=== PATIENT | male | born 1960 | race Caucasian/White ===

== ENCOUNTER 2017-04-10 13:05 | Observation (INO) ==
[2017-04-10] MEDS ORDERED: Aspirin 81 MG TAB.CHEW PO ONE (13:17)
[2017-04-10] MEDS ORDERED: Nitroglycerin 0.4 MG TAB.SUBL SL ONE (13:17)
--- NOTE | 2017-04-10 13:18 | Emergency Department Note ---
Disposition Clinical Impression: Chest pain Qualifiers: Chest pain type: unspecified Qualified Code(s): R07.9 - Chest pain, unspecified Disposition: Admitted As Inpatient Condition: Fair Referrals: Servando Perez CNP [Primary Care Provider] - Forms: ED Satisfaction Letter Time of Disposition: 15:46 General Adult HPI - General Chief complaint: ED Chest Pain Stated complaint: chest pain, ekg changes, sent from PCP Time Seen by Provider: 04/10/17 13:16 Source: patient Mode of arrival: private vehicle Limitations: no limitations Nursing Notes Reviewed: Yes Vital Signs Reviewed: Yes - History of Present Illness HPI Narrative: Patient is a 56-year-old male with a past medical history of MIs in the past sent and by his primary care physician for EKG changes and the patient is also complaining of chest pain that started about 5 hours prior to arrival to the emergency department. Patient describes his chest pain is left-sided is a stabbing pain that radiates into his left arm. He does not have any associated nausea, vomiting, diaphoresis and does not appear to be exertional. Patient states nothing makes his chest pain better and nothing makes it worse. Denies any history of blood clots in the past. - Related Data Home Medications Medication Instructions Recorded Confirmed HYDROcodone/Acet 5/325 mg [[place] 1 tab PO Q6H PRN 01/13/17 04/10/17 5-325 mg] Omeprazole [PriLOSEC] 20 mg PO DAILY 01/13/17 04/10/17 Baclofen [Lioresal] 10 mg PO TID PRN 04/10/17 04/10/17 Mupirocin [Bactroban Oint] 1 appl TP BID 04/10/17 04/10/17 Allergies Allergy/AdvReac Type Severity Reaction Status Date / Time No Known Allergies Allergy Verified 01/13/17 13:41 All systems ED: reviewed and negative except as stated. Constitutional: Denies: fever, chills ENT ED: Denies: congestion Cardiovascular: Reports: chest pain. Denies: palpitations, dyspnea on exertion , orthopnea, edema, syncope Respiratory: Denies: cough, dyspnea, wheezes Gastrointestinal: Denies: abdominal pain, nausea, vomiting Musculoskeletal: Denies: back pain, neck pain Integumentary: Denies: rash, abrasion Neurological: Denies: headache, weakness Psychiatric: Denies: anxiety, depression Past Medical History - Past Medical History Medical history: Reports: asthma, GERD, hyperlipidemia - Social History Smoking Status: Current every day smoker Physical Exam Patient does not appear to be in acute distress at this time. - General Limitations: no limitations General appearance: alert, in no apparent distress - Head Head exam: atraumatic, normocephalic, normal inspection - Eye Eye exam: Present: normal appearance, PERRL, EOMI - ENT ENT exam: normal exam, normal oropharynx, mucous membranes moist - Neck Neck exam: Present: normal inspection, full ROM, trachea midline. Absent: tenderness - Chest Chest inspection: Present: normal inspection, symmetric chest wall rise. Absent : tenderness - Respiratory Respiratory exam: Present: normal lung sounds bilaterally. Absent: respiratory distress, wheezes - Cardiovascular Cardiovascular exam: Present: regular rate, normal rhythm, normal heart sounds - Abdominal Exam Abdominal exam: Present: soft, Non-Tender, normal bowel sounds - Extremities Exam Extremities exam: Present: normal inspection, full ROM. Absent: tenderness, normal capillary refill - Back Exam Back exam: Present: normal inspection, full ROM. Absent: tenderness, CVA tenderness (R), CVA tenderness (L) - Neurological Exam Neurological exam: Present: alert, oriented X3 - Psychiatric Psychiatric exam: Present: normal affect, normal mood - Skin Skin exam: Present: warm, dry, intact, normal color Course Course Narrative: Patient's chest pain resolved from a 4/10 to a 0/10 after he received nitroglycerin. Patient's lab work came back negative. Chest x-ray was negative. EKG changes are unchanged from his old EKGs. Plan is to admit the patient for ACS rule out. I spoke with Dr. Bateman and he agrees to accept the patient. Vital Signs Temperature 98.4 F 04/10/17 13:13 Pulse Rate 66 04/10/17 13:13 Respiratory Rate 16 04/10/17 13:13 Blood Pressure 147/101 04/10/17 13:13 O2 Sat by Pulse Oximetry 95 04/10/17 13:13 Temperature 98.4 F 04/10/17 13:13 Pulse Rate 63 04/10/17 14:52 Respiratory Rate 14 04/10/17 14:52 Blood Pressure 130/90 04/10/17 14:52 O2 Sat by Pulse Oximetry 96 04/10/17 14:52 Oxygen Delivery Oxygen Delivery Nasal Cannula Medical Decision Making - Medical Records Medical records reviewed: Yes I reviewed the patient's medical records. - Lab Data Lab results reviewed: Yes I reviewed the patient's lab results. Result diagrams: 04/10/17 13:19 04/10/17 13:19 Lab Results 04/10/17 04/10/17 04/10/17 Range/Units 13:19 13:19 13:19 WBC 9.4 (4.3-11.1) K/mcL RBC 5.33 (4.19-5.50) M/mcL Hgb 16.6 (12.9-16.9) g/dL Hct 48.5 (37.5-50.1) % MCV 91.0 (83.0-100.0) fL MCH 31.1 (28.0-33.3) pg MCHC 34.2 (31.6-35.5) g/dL RDW 13.9 (11.5-14.5) % Plt Count 208 (140-400) K/mcL MPV 9.2 L (9.4-12.4) fL Immature Gran % 0.2 (0-4) % Seg Neutrophils % 55.6 % Lymphocytes % 35.1 % Monocytes % 7.3 % Eosinophils % 1.1 % Basophils % 0.7 % Neutrophils # 5.2 (1.6-8.9) K/mcL Lymphocytes # 3.3 (0.6-4.6) K/mcL Monocytes # 0.7 (0.0-1.3) K/mcL Eosinophils # 0.1 (0.0-0.6) K/mcL Basophils # 0.1 (0.0-0.2) K/mcL D-Dimer (0-500) ng/mLFEU Sodium 140 (136-145) mEq/L Potassium 3.9 (3.5-4.5) mEq/L Chloride 107 (98-109) mEq/L Carbon Dioxide 23 (19-29) mEq/L BUN 13 (8-26) mg/dL Creatinine 1.19 (0.72-1.25) mg/dL Est GFR ( Amer) > 60 (> 60) Est GFR (Non-Af Amer) > 60 (> 60) BUN/Creatinine Ratio 11 (6-26) Glucose 117 H (70-99) mg/dL Calculated Osmolality 291 (280-300) Calcium 9.5 (8.6-10.8) mg/dL Troponin I 0.00 (0-0.03) ng/mL 04/10/17 Range/Units 13:19 WBC (4.3-11.1) K/mcL RBC (4.19-5.50) M/mcL Hgb (12.9-16.9) g/dL Hct (37.5-50.1) % MCV (83.0-100.0) fL MCH (28.0-33.3) pg MCHC (31.6-35.5) g/dL RDW (11.5-14.5) % Plt Count (140-400) K/mcL MPV (9.4-12.4) fL Immature Gran % (0-4) % Seg Neutrophils % % Lymphocytes % % Monocytes % % Eosinophils % % Basophils % % Neutrophils # (1.6-8.9) K/mcL Lymphocytes # (0.6-4.6) K/mcL Monocytes # (0.0-1.3) K/mcL Eosinophils # (0.0-0.6) K/mcL Basophils # (0.0-0.2) K/mcL D-Dimer 372 (0-500) ng/mLFEU Sodium (136-145) mEq/L Potassium (3.5-4.5) mEq/L Chloride (98-109) mEq/L Carbon Dioxide (19-29) mEq/L BUN (8-26) mg/dL Creatinine (0.72-1.25) mg/dL Est GFR ( Amer) (> 60) Est GFR (Non-Af Amer) (> 60) BUN/Creatinine Ratio (6-26) Glucose (70-99) mg/dL Calculated Osmolality (280-300) Calcium (8.6-10.8) mg/dL Troponin I (0-0.03) ng/mL - Radiology Data Radiology results reviewed: Yes I reviewed the patient's radiology results. Chest X-Ray 04/10/17 13:17 IMPRESSION: No active cardiopulmonary disease D/ / Arturo Hollingsworth MD / Arturo Hollingsworth MD Interpreting Provider: Arturo Hollingsworth MD - EKG Data EKG #1 EKG attestation: Yes I reviewed and interpreted this EKG. EKG results narrative: I interpret EKG that was done at 13:11. EKG is sinus rhythm at a rate of 67 bpm. Normal axis. [place], QRS, QT, and QTC are within normal limits. Patient has good R-wave progression. Patient does have [place] depression in the inferior leads which this is actually old when compared to EKGs that were done on 06/26/2007 and also appeared unchanged from EKG that was sent over from the primary care physician's office today. Attestation Statement - Attestation Attestation: I examined this patient and my medical decision-making was reviewed with the Resident Physician. I agree with the documented findings, disposition and treatment plan as described except to the extent set forth below. Patient to the ED complaining of chest pain. Left-sided. Chest pain. Pain radiates on his left arm. It has not improved but not fully resolved before his arrival here. History of multiple MIs. On exam he is in no acute distress. Heart regular. Plan. The patient's EKG appears to have elevations, however these are chronic. It is more pronounced with his [place] depression which is also chronic. Troponin negative. Pain improved with nitroglycerin. He is admitted to medicine.
[2017-04-10 13:27] LABS: Basophils # 0.1 K/mcL (0.0-0.2); Basophils % 0.7 %; Eosinophils # 0.1 K/mcL (0.0-0.6); Eosinophils % 1.1 %; Hematocrit 48.5 % (37.5-50.1); Hemoglobin 16.6 g/dL (12.9-16.9); Immature Granulocytes % 0.2 % (0-4); Lymphocytes # 3.3 K/mcL (0.6-4.6); Lymphocytes % 35.1 %; Mean Corpuscular HGB Conc 34.2 g/dL (31.6-35.5); Mean Corpuscular Hemoglobin 31.1 pg (28.0-33.3); Mean Platelet Volume 9.2 fL (9.4-12.4); Monocytes # 0.7 K/mcL (0.0-1.3); Monocytes % 7.3 %; Neutrophils # 5.2 K/mcL (1.6-8.9); Platelet Count 208 K/mcL (140-400); Red Blood Count 5.33 M/mcL (4.19-5.50); Red Cell Distribution Width 13.9 % (11.5-14.5); Segmented Neutrophils % 55.6 %
[2017-04-10 13:39] LABS: BUN/Creatinine Ratio 11 (6-26); Blood Urea Nitrogen 13 mg/dL (8-26); Calcium 9.5 mg/dL (8.6-10.8); Carbon Dioxide 23 mEq/L (19-29); Chloride 107 mEq/L (98-109); Glucose 117 mg/dL (70-99); Osmolality,Calculated 291 (280-300); Potassium 3.9 mEq/L (3.5-4.5); Sodium 140 mEq/L (136-145); eGFR For African Americans > 60 (> 60); eGFR For Non-African Americans > 60 (> 60)
[2017-04-10] MEDS ORDERED: *HR* OxyCODONE Immed Rel 5 MG TABLET PO PRN (16:38)
[2017-04-10] MEDS ORDERED: *HR* Morphine 2 MG/ML SYRINGE IVP PRN (16:38)
[2017-04-10] MEDS ORDERED: Acetaminophen 325 MG TABLET PO PRN (16:38)
[2017-04-10] MEDS ORDERED: Naloxone 0.4 MG/ML INJ IVP PRN (16:38)
[2017-04-10] MEDS ORDERED: Ondansetron 4 MG/2 ML VIAL IVP PRN (16:38)
--- NOTE | 2017-04-10 16:44 | Internal Med History&Physical ---
Date of Encounter: 04/10/17 Time of Encounter: 04:35 Assessment and Plan (1) Chest pain Current visit: Yes Status: Acute Mixed features in patient with significant risk factors CXR done in the ER poor positioning with left costophrenic angle not visualized. Initial troponin negative EKG is non-ischemic and unchanged from EKG on EMR Chest pain is most likely secondary to bronchitis Patient is a smoker and has pre-DM as well as HLD Cycle trop Stress test a.m if stress test is negative Repeat CXR -2 views Continue ASA 81 mg daily Add Lipitor 80mg HS-May de-escalate based on result of lipid profile D-dimer is negative, no risk factors for PE Qualifiers: Chest pain type: unspecified Qualified Code(s): R07.9 - Chest pain, unspecified (2) COPD exacerbation Current visit: Yes Status: Acute Patient states he has known COPD and smokes Diffuse wheezing as well as cough on presentation CXR poor positioning-repeat with 2 views Start on prednisone po 40mg daily Levaquin po Duonebs q4h SHONNA Albuterol q2hr prn Sputum culture O2 supplementation prn, he is saturating 95% on room air at this time Follow reports (3) Pre-diabetes Current visit: Yes Status: Chronic A1C 5.7 in 2016 Repeat A1C with next troponin check (4) HLD (hyperlipidemia) Current visit: Yes Status: Chronic Check fasting lipid profile a.m Lipitor 80mg HS Qualifiers: Hyperlipidemia type: unspecified Qualified Code(s): E78.5 - Hyperlipidemia , unspecified (5) Obesity (BMI 30.0-34.9) Current visit: Yes Status: Chronic Lifestyle modification encouraged (6) Tobacco abuse Current visit: Yes Status: Chronic Smokes 1.5 PPD Declines NRT Tobacco cessation counselling Internal Medicine - H&P: HPI Chief complaint: Chest pain, difficulty breathing Admitted From: Home Plans for Post Hospital Care: Home History of present illness: Mr. Borja is a 56 year old male who presented to the ER with chest pain Patient was in his usual state of health till the early hours of this morning when he was about to get out of bed and developed pleuritic Left sided chest pain which was about 5-6/10, non-radiating and associated with some shortness of breath. He denies association with exercise or meals, but believes it is worse when he breathes. Chest pain is described as sharp and stabbing. Not pressure-like He reports he has been coughing with production of greenish sputum for a month. He denies nausea, vomiting or diaphoresis. NO dizziness. Chest pain lasted till he received NTG in the ER He denies orthopnea, dyspnea on exertion or leg swelling At time of review, he is no longer having chest pain He reports "I have had 4 heart attacks, but denies any cardiac work ups or LHC. When asked what he means he says "I just know. He denies illicit drug use He smoked 1.5 PPD of cigarettes PMH and Chart review reveals hx of Pre-Dm , COPD, HLD and GERD He denies significant family hx of IA Past Med Surg Social Fam HX - Past Medical History Medical history: COPD, GERD, hyperlipidemia Psychiatric history: depression - Social History Smoking Status: Current every day smoker Smokeless Tobacco Status: No Alcohol use: none Drug use: none Internal Medicine - H&P: Meds HYDROcodone/Acet 5/325 mg [[place] 5-325 mg] 1 tab PO Q6H PRN 01/13/17 [History] Omeprazole [PriLOSEC] 20 mg PO DAILY 01/13/17 [History] Baclofen [Lioresal] 10 mg PO TID PRN 04/10/17 [History] Mupirocin [Bactroban Oint] 1 appl TP BID 04/10/17 [History] 3 Allergy/AdvReac Type Severity Reaction Status Date / Time No Known Allergies Allergy Verified 01/13/17 13:41 All Systems PM: A 10-system review of systems was performed and is negative for pertinent findings except as documented above in the HPI. - Constitutional Constitutional: no chills, no fever(s), no night sweats - EENT Eyes: no change in vision, no discharge, no pain, no photophobia Ears: no ear discharge, no ear pain, no tinnitus Nose, mouth and throat: no dysphagia, no nasal discharge, no neck pain, no sore throat - Cardiovascular Cardiovascular ROS IM: as per HPI - Respiratory Respiratory: cough, dyspnea, pain on inspiration - Gastrointestinal Gastrointestinal: no abdominal pain, no diarrhea, no hematemesis, no hematochezia, no melena, no nausea, no vomiting - Musculoskeletal Musculoskeletal ROS IM: no numbness, no tingling - Integumentary Integumentary IM: no rash, no unusual bruising - Neurological Neurological ROS: no confusion, no convulsions, no focal weakness, no numbness, no tingling, no tremor(s) - Hematologic/Lymphatic Hematologic/Lymphatic: no easy bruising - Constitutional Vitals: Temp Pulse Resp BP Pulse Ox 98.4 F 56 11 105/79 96 04/10/17 13:13 04/10/17 16:16 04/10/17 16:16 04/10/17 16:16 04/10/17 16:16 Sitting up in bed, able to complete sentences VSS> RR 18. O2 sat 95% on room air Gen: No acute distress HEENT: Moist oral mucosa, pink conjunctiva, sclera is anicteric Chest: Diffuse wheezing ++ in all lung dodd. Rhonchi in bases. L> R. Left chest wall tenderness. Heart: S1, S2 only. Bradycardic Abdomen: Soft and not tender, no palpably enlarged organs Extremities: No edema Internal Med - H&P Results - Labs CBC & Chem 7: 04/10/17 13:19 04/10/17 13:19
[2017-04-10] MEDS ORDERED: Albuterol 2.5 MG/3 ML NEBULIZER IH PRN (17:18)
[2017-04-10] MEDS: levoFLOXacin 500 MG TABLET PO SCH (18:14)
[2017-04-10] MEDS: predniSONE 20 MG TABLET PO SCH (18:14)
[2017-04-10 19:31] LABS: Hemoglobin A1C 5.6 %
[2017-04-10] MEDS: Ipratropium/Albuterol Neb 3 ML IH SCH ×2 (20:03→23:30)
[2017-04-11 01:06] LABS: Basophils % 0.3 %; Eosinophils % 0.1 %; Hematocrit 44.8 % (37.5-50.1); Hemoglobin 15.6 g/dL (12.9-16.9); Immature Granulocytes % 0.3 % (0-4); Lymphocytes # 1.1 K/mcL (0.6-4.6); Lymphocytes % 12.2 %; Mean Corpuscular HGB Conc 34.8 g/dL (31.6-35.5); Mean Corpuscular Hemoglobin 31.1 pg (28.0-33.3); Mean Corpuscular Volume 89.4 fL (83.0-100.0); Mean Platelet Volume 9.3 fL (9.4-12.4); Monocytes # 0.1 K/mcL (0.0-1.3); Monocytes % 1.2 %; Neutrophils # 7.6 K/mcL (1.6-8.9); Platelet Count 186 K/mcL (140-400); Red Blood Count 5.01 M/mcL (4.19-5.50); Red Cell Distribution Width 14.1 % (11.5-14.5); Segmented Neutrophils % 85.9 %
[2017-04-11 01:22] LABS: Chol/HDL Ratio 6.4 (0-4.9)
[2017-04-11] MEDS: Ipratropium/Albuterol Neb 3 ML IH SCH ×6 (03:18→23:45)
[2017-04-11] MEDS ORDERED: Regadenoson 0.4 MG/5 ML SYRINGE IVP ONE (06:16)
[2017-04-11] MEDS: predniSONE 20 MG TABLET PO SCH (08:57)
[2017-04-11] MEDS: Aspirin Enteric Coated 81 MG Tablet PO SCH (08:57)
[2017-04-11] MEDS: levoFLOXacin 500 MG TABLET PO SCH (08:57)
--- NOTE | 2017-04-11 10:27 | Internal Med Progress Note ---
Date of Encounter: 04/11/17 Time of Encounter: 13:00 - Assessment and plan (1) Chest pain Current Visit: Yes Status: Acute Assessment and plan: Mixed features in patient with significant risk factors Chest pain free since arrival Trop negative X3 D-dimer normal CXR done in the ER negative, EKG non-ischemic, Stress test abnormal,awaiting [facility] at time of review Continue ASA, BB, Lipitor Qualifiers: Chest pain type: unspecified Qualified Code(s): R07.9 - Chest pain, unspecified (2) COPD exacerbation Current Visit: Yes Status: Acute Assessment and plan: Continue prednisone, duonebs, azithromycin (3) Pre-diabetes Current Visit: Yes Status: Ruled-out Assessment and plan: Ruled out Hb A1C 5.6 (4) HLD (hyperlipidemia) Current Visit: Yes Status: Chronic Assessment and plan: Abnormal Lipid panel Continue lipitor, de-escalate depending on [facility] results Qualifiers: Hyperlipidemia type: unspecified Qualified Code(s): E78.5 - Hyperlipidemia , unspecified (5) Obesity (BMI 30.0-34.9) Current Visit: Yes Status: Chronic Assessment and plan: Lifestyle modification (6) Tobacco abuse Current Visit: Yes Status: Chronic Assessment and plan: Encouraged cessation Declined NRT - Subjective Interval history: Seen and evaluated, waiting at bedside, standing, refusing to sit to be examined Denies any more chest pain Stress test was abnormal and I had contacted cardiology for evaluation Patient is awaiting [facility] His SOB has improved He is no longer needing O2 - Constitutional Vitals: Temp Pulse Resp BP Pulse Ox 97.6 F 52 18 107/67 95 04/11/17 08:58 04/11/17 08:58 04/11/17 08:58 04/11/17 08:58 04/11/17 08:58 General appearance: Present: A&O X 3, no acute distress, obese. Absent: pleasant - Head Head exam: Present: atraumatic, normocephalic - Eye Eye exam: Present: PERRL, conjuntiva pink, sclera anicteric Pupils: Present: PERRL - Neck Neck exam general surgery: Present: supple, trachea midline. Absent: lymphadenopathy - Respiratory Respiratory exam: Present: CTAB. Absent: accessory muscle use, rales, rhonchi, wheezes - Cardiovascular Cardiovascular exam: Present: RRR, +S1, +S2. Absent: diastolic murmur, gallop, rubs, systolic murmur - GI/Abdominal GI/Abdominal exam: Present: normal bowel sounds, soft, no peritoneal signs. Absent: distended, tenderness - Extremities Exam Extremities exam: Present: warm, radial pulses palpable and symmetrical. Absent : calf tenderness, cyanotic, pedal edema - Neurological Exam Neurological exam: Present: alert, CN II-XII intact, oriented X3, no focal deficits. Absent: pronater drift, facial droop, speech deficit - Skin Skin exam: Present: dry, intact Internal Medicine: Result - Labs CBC & Chem 7: 04/11/17 00:58 04/10/17 13:19 Labs: Short CBC 04/11/17 Range/Units 00:58 WBC 8.8 (4.3-11.1) K/mcL Hgb 15.6 (12.9-16.9) g/dL Hct 44.8 (37.5-50.1) % Plt Count 186 (140-400) K/mcL Neutrophils # 7.6 (1.6-8.9) K/mcL Cardiac Enzymes 04/10/17 04/11/17 Range/Units 18:21 00:58 Troponin I 0.00 0.00 (0-0.03) ng/mL - ABG Interpretation ABG results: PT/INR, D-dimer D-Dimer 372 ng/mLFEU (0-500) 04/10/17 13:19 - Impressions Impressions Chest X-Ray 04/10/17 16:58 IMPRESSION: No acute process. D/ / Claude De MD / Claude De MD Interpreting Provider: Claude De MD Consult Discharge Plan - Plan Referrals: Tatiana Bautista WEED BURNER [Advanced Practice Nurse] - 04/18/17 12:30 pm
--- NOTE | 2017-04-11 11:43 | Cardiology Consult Note ---
Date of Encounter: 04/11/17 Time of Encounter: 10:45 Assessment and Plan (1) Chest pain Current Visit: Yes Status: Acute Per cardiology: -Reports chest pain. States occurs at rest and with exertion. -Reports has had this pain off and on for months. -ECG with no acute changes. -Denies current chest pain. -Troponins negative x3. -Stress test abnormal. -Recommended LHC, see below. Qualifiers: Chest pain type: unspecified Qualified Code(s): R07.9 - Chest pain, unspecified (2) Abnormal stress test Current Visit: Yes Status: Acute Per cardiology: -Nuclear stress with small sized, mild-moderate intensity stress perfusion defect involving apex probably representing mild ischemia. There is transient ischemic dilatation which can be a sign of underlying CAD. Ratio 1.58. Gated EF 68%. -Discussed at length regarding abnormal stress test with patient. -On asa and statin. -Recommend LHC. Risks versus benefits of LHC explained to patient. Patient declines LHC at this time. Patient educated on risk of arrythmia, DC, or without proceeding with LHC. Patient states understanding and still refuses LHC. -Will check echo. -Low dose beta raimundo added. (3) Tobacco abuse Current Visit: Yes Status: Chronic Per cardiology: -Reports smoking 0.5ppd for about 50 years. -I spent 3 minutes reviewing smoking cessation education with patient. Discussion w patient/family: The assessment and plan as outlined above was discussed with the patient who expressed understanding and agreement. All questions were answered. Thank you for involving us in the care of your patient. Please call with any questions. Discussed and reviewed with . History of Present Illness Consult date: 04/11/17 Requesting physician: Isaiah Silverio Consult reason: abnormal stress Chief complaint: chest pain History of present illness: Mr. Borja is a 56 year old male with a relevant past medical history of hyperlipidemia, and tobacco abuse with smoking 0.5ppd for almost 50 years. Patient reports he has been having intermittent chest pain for the past several months. Patient states pain occurs with exertion and at rest. Patient states pain is mid sternal and feel like a "stabbing" sensation. Patient notes that pain is worse when he is under emotional stress. Patient denies alleviating factors and states pain spontaneously resolves. Patient reports increased shortness of breath over the past couple of months. Patient denies increased fatigue. Patient denies current chest pain. Past Med Surg Social Fam HX - Past Medical History Attestation: Yes The following information was validated with the patient. Source: patient, old records reviewed Medical history: COPD, GERD, hyperlipidemia Psychiatric history: depression - Social History Smoking Status: Current every day smoker Packs per day: 1/2 Smokeless Tobacco Status: No Alcohol use: none Drug use: none - Family History Father Name: Everardo Borja Living Status: Cause of : cancer Hx Family Cancer: Yes Medications and Allergies HYDROcodone/Acet 5/325 mg [[place] 5-325 mg] 1 tab PO Q6H PRN 01/13/17 [History] Omeprazole [PriLOSEC] 20 mg PO DAILY 01/13/17 [History] Baclofen [Lioresal] 10 mg PO TID PRN 04/10/17 [History] Mupirocin [Bactroban Oint] 1 appl TP BID 04/10/17 [History] 3 Allergy/AdvReac Type Severity Reaction Status Date / Time No Known Allergies Allergy Verified 01/13/17 13:41 All Systems Review: A 10-system review of systems was performed and is negative for pertinent findings except as documented above in the HPI. - Cardiovascular Cardiovascular: as per HPI, chest pain at rest, chest pain with exertion, dyspnea at rest, dyspnea on exertion Physical Examination Vital Signs, Last 4 Hours Temp Pulse Resp BP Pulse Ox 04/11/17 08:58 97.6 F 52 18 107/67 95 General: Conversant, No Apparent Distress HEENT: Atraumatic, Normocephaly, Mucus Membranes Moist Neck: No JVD, Normal carotid pulses Cardiac: Reg Rate and Rhythm, Normal S1 and S2, No Murmur Lungs: Normal Breath Sounds, No Wheeze, Rales, Rhonchi Neuro: Alert and responsive, No focal deficits noted Abdomen: Soft, Non-Tender Skin: No rashes noted on visualized skin Musculoskeletal: No Chest Wall Tenderness Extremities: No Clubbing, No Cyanosis, No Edema, Normal Pulses Results 04/11/17 00:58 04/10/17 13:19 Lab Results Impressions Chest X-Ray 04/10/17 13:17 IMPRESSION: No active cardiopulmonary disease D/ / Arturo Hollingsworth MD / Arturo Hollingsworth MD Interpreting Provider: Arturo Hollingsworth MD Chest X-Ray 04/10/17 16:58 IMPRESSION: No acute process. D/ / Claude De MD / Claude De MD Interpreting Provider: Claude De MD Active Medications Acetaminophen (Tylenol) 650 mg PO Q6HR PRN PRN Reason: Mild Pain (1-3) Stop: 10/10/17 16:39 Albuterol Sulfate (Proventil Neb) 2.5 mg IH Q2H PRN; Protocol PRN Reason: Shortness Of Breath/Wheezing Stop: 10/10/17 17:19 Albuterol/Ipratropium (Duoneb) 3 ml IH [id number] [facility] Stop: 10/10/17 20:01 Last Admin: 04/11/17 11:13 Dose: 3 ml Aspirin (Aspirin Ec) 81 mg PO DAILY [facility] Stop: 10/11/17 09:01 Last Admin: 04/11/17 08:57 Dose: 81 mg Atorvastatin Calcium (Lipitor) 80 mg PO HS [facility] Stop: 10/10/17 21:01 Last Admin: 04/10/17 19:35 Dose: 80 mg Levofloxacin (Levaquin) 500 mg PO DAILY SHONNA PRN Reason: Protocol Stop: 10/10/17 17:16 Last Admin: 04/11/17 08:57 Dose: 500 mg Metoprolol Tartrate (Lopressor) 12.5 mg PO BID [facility] Stop: 10/11/17 21:01 Morphine Sulfate (Morphine Sulfate) 2 mg IVP Q4HR PRN PRN Reason: Severe Pain (7-10) Stop: 10/10/17 16:39 Mupirocin (Bactroban Oint) 1 appl TP BID [facility] Stop: 10/10/17 21:01 Last Admin: 04/11/17 08:57 Dose: Not Given Naloxone HCl (Narcan) 0.4 mg IVP Q2MIN PRN PRN Reason: Opioid Reversal Stop: 10/10/17 16:39 Omeprazole (Prilosec) 20 mg PO DAILY SHONNA PRN Reason: Protocol Stop: 10/11/17 09:01 Last Admin: 04/11/17 08:57 Dose: 20 mg Ondansetron HCl (Zofran) 4 mg IVP Q8HR PRN PRN Reason: Nausea And Vomiting Stop: 10/10/17 16:39 Oxycodone HCl (Roxicodone) 5 mg PO Q6HR PRN PRN Reason: Moderate Pain (4-6) Stop: 10/10/17 16:39 Prednisone (Prednisone) 40 mg PO DAILY [facility] Stop: 10/10/17 17:16 Last Admin: 04/11/17 08:57 Dose: 40 mg Laboratory Tests 04/10/17 04/10/17 04/10/17 13:19 13:19 18:21 Hgb Creatinine 1.19 Troponin I 0.00 0.00 Triglycerides Cholesterol LDL Cholesterol, Calc HDL Cholesterol 04/11/17 04/11/17 04/11/17 00:58 00:58 00:58 Hgb 15.6 Creatinine Troponin I 0.00 Triglycerides 180 H Cholesterol 245 H LDL Cholesterol, Calc 171 H HDL Cholesterol 38 L - Imaging and Cardiology Chest Xray: report reviewed Stress Test: report reviewed Echo: pending - EKG Interpretation EKG results cardiology: personally reviewed (ECG with SR, HR 67. ST segment changes noted, however similar to previous ST changes noted in 2007.), other ( Telemetry reviewed with average HR previous 12 hours noted to be 77, sinus rhythm. PVCs and PACs noted.) Consult Discharge Plan - Plan Referrals: Tatiana Bautista, IMMIGRATION ATTORNEY [Advanced Practice Nurse] - 04/18/17 12:30 pm
[2017-04-11] MEDS ORDERED: 0.9 % Sodium Chloride 1,000 ML ONE (13:25)
[2017-04-11] MEDS ORDERED: Heparin 1,000 UNITS/500 mL NS 500 ML ONE (13:25)
[2017-04-11] MEDS ORDERED: *HR* Heparin 10,000 UNIT/10 ML VIAL ONE (13:25)
[2017-04-11] MEDS ORDERED: Nitroglycerin 1,000 MCG/10 ML VIAL IV ONE (13:26)
[2017-04-11] MEDS ORDERED: *HR* Midazolam HCl 2 MG/2 ML VIAL ONE (13:52)
[2017-04-11] MEDS ORDERED: *HR* FentaNYL (PF) 100 MCG/2 ML VIAL ONE (13:53)
--- NOTE | 2017-04-11 14:33 | Invasive Diagnostic Lab Proc ---
Name: Kumar Borja Date of Study: 04/11/2017 Date: 1960 Ht: 66.0in Medical Record#: [id number] Age: 56 Wt: 205.47lb Gender: Male BSA: 2.02 Order #: [id number] BMI: 33.18 Physicians Procedure Physician: Lindsay Fontanez MD Referring MD: Referring MD: Staff Name Position Time In Lia Harrison RT (R) Scrub 01:26 PM Lyle Pichardoian RT (R) Monitor 01:26 PM Karen De Leon RN Gambling Broker 01:26 PM Indications Indication Abnormal Test - Stress Procedures Performed Procedure L HRT ARTERY/VENTRICLE ANGIO Pre-Procedure Checklist Pt not NPO for procedure and MD aware. Blood Pressure: 114/54 Rhythm: Sinus Arrhythmia Plan of Care Patient will tolerate the procedure without complications. Adequate level of comfort will be maintained. Hemodynamics will remain stable Patient will recover from procedure without complications. Respiratory function will be maintained. Cardiac rhythm will remain stable. Patient temperature will be maintained. Patient and/or family have verbalized understanding of the procedure. Patient Education Chief Complaint/Reason for Test: Cardiac Cath Developmental Category: Geriatric (65+ years) Developmentally Appropriate for Age: Yes Learning Barriers: None Education Needs: Procedure Education Method: Verbal Information Taught: Cardiac Cath Educational Evaluation: Able to repeat information Intravenous Access Time IV Size Location DC'd Fluid/Drip Rate Units RN 01:45 PM 18g 1 06/12" Patent On Arrival Rt Antecubital 0.9NaCl 25 ml/hr Karen De Leon RN Allergies No Known Allergies Vital Signs Time BP (mmHg) HR (bpm) O2 Sat. RR (bpm) LOC 01:46 PM 114 / 54 67 94 % 10 5 = Fully awake and oriented or at pre-proc level 01:41 PM / % 4 = Oriented but drowsy 01:57 PM / % 4 = Oriented but drowsy 01:51 PM 155 / 88 72 95 % 27 01:55 PM 146 / 87 112 96 % 22 02:00 PM 136 / 81 78 95 % 12 02:05 PM 139 / 87 107 93 % 20 02:10 PM 141 / 87 109 90 % 19 02:15 PM 134 / 80 97 93 % 16 02:20 PM 125 / 76 87 95 % 13 02:12 PM / % 5 = Fully awake and oriented or at pre-proc level Procedural Medications Time Medication Dose Units Method Given By 01:53 PM Oxygen 2 L/min nasal cannula Karen De Leon RN 01:53 PM Versed 1 mg Intravenous Karen De Leon RN 01:53 PM Fentanyl 50 mcg Intravenous Karen De Leon RN 02:01 PM Versed 0.5 mg Intravenous Karen De Leon RN 02:02 PM Fentanyl 25 mcg Intravenous Karen De Leon RN 02:03 PM Lidocaine 2% 10 ml Subcutaneous Lindsay Fontanez MD 02:10 PM Oxygen 4 L/min nasal cannula Karen De Leon RN ASA Classification: CLASS II- Mild systemic disease (i.e. well-controlled diabetes, hypertension, asthma, cigarette smoking) Lance Score Preprocedure Postprocedure Activity 2- Moves 4 extremities sustained head lift Activity 2- Moves 4 extremities sustained head lift Circulation 2- SBP +/= 20 points of pre-anesthetic level Circulation 2- SBP +/= 20 points of pre-anesthetic level Consciousness 2- Awake and alert oriented x 3 Consciousness 2- Awake and alert oriented x 3 O2 Saturation 2- Able to maintain O2 satruation of 92% on room air O2 Saturation 2- Able to maintain O2 satruation of 92% on room air Respiratory 2- Able to deep breathe and cough well Respiratory 2- Able to deep breathe and cough well Total Score 10 Total Score 10 Contrast Agent: Isovue Diagnostic Contrast: 54 ml Total Contrast: 54 ml Fluoro Dose: 197 mGy Procedure Log Time Note Enter By 01:26 PM Patient charges- Angio tray pack, Navilyst 3mm J, Pulse Oximetry and ACIST tubing and transducer : PM Lia Harrison RT (R) Position: Scrub Time in: 13:: PM Aung Pichardo RT (R) Position: Monitor Time in: :: PM Karen De Leon RN Position: Gambling Broker Time in: ::41 PM Pt arrived to lab rn 1 at 13:41 : PM Time: 13:41 Patient comfortable and pain free: Yes :41 PM Time: 13:41LOC: 5 = Fully awake and oriented or at pre-proc level :41 PM Physician arrived 13:41 01:42 PM Meet and greet completed [email or web address] 01:42 PM Sign in performed according to hospital policy. [email or web address] 01:42 PM Procedure start 13:42 [email or web address] 01:42 PM ASA Class CLASS II- Mild systemic disease (i.e. well-controlled diabetes, hypertension, asthma, cigarette smoking) [email or web address] 01:46 PM CathStat 01:46 PM Case Delayed No [email or web address] 01:47 PM Hair removed from procedure site in procedure lab using clippers. Bilateral groin prepped with Chloraprep by Lia Harrison (R), safety strap applied then patient was draped. Skin intact. [email or web address] 01:50 PM Vitals capture started with the following parameters, Patient=Adult, Interval=5 min, Initial Qfideqcg=741 mmHg, Deflation Rate=5 mmHg, Cuff placed on Right Arm 01:50 PM Recorded ECG: HR=69 Condition=Condition 1 01:51 PM HR=72 bpm, WZEZ=950/88 mmhg, SpO2=95.0 %, Resp=27 B/min 01:52 PM Recorded ECG: HR=75 Condition=Condition 1 01:53 PM Time: 13:53 Oxygen on at 2 L/min per nasal cannula by Karen De Leon RN 2 01:53 PM Time: 13:53 Versed 1 mg Intravenous Given by Karen De Leon RN [email or web address] 01:54 PM Time: 13:53 Fentanyl 50 mcg Intravenous Given by Karen De Leon RN [email or web address] 01:55 PM YB=557 bpm, IWNV=499/87 mmhg, SpO2=96.0 %, Resp=22 B/min 01:56 PM Pressure channel 1 zero failed. 01:56 PM Pressure channel 1 zero failed. 01:56 PM Pressure channel 1 zero failed. 01:57 PM Time: 13:41LOC: 4 = Oriented but drowsy 01:57 PM Time: 13:41 Patient comfortable and pain free: Yes [email or web address] 01:57 PM Pressure channel 1 zero failed. 01:57 PM Pressure channel 1 zeroed. 02:00 PM HR=78 bpm, BOMC=937/81 mmhg, SpO2=95.0 %, Resp=12 B/min 02:01 PM Time: 14:01 Versed 0.5 mg Intravenous Given by Karen De Leon RN [email or web address] 02:02 PM Time: 14:02 Fentanyl 25 mcg Intravenous Given by Karen De Leon RN [email or web address] 02:03 PM Time out performed according to hospital policy 02:04 PM Time: 14:03 10 ml Lidocaine 2% to right groin Subcutaneous Given by Lindsay Fontanez MD 02:04 PM Unsuccessful access attempt # 1 into the right Femoral artery. Manual pressure applied to achieve hemostasis.. 02:05 PM Micro-Introducer Kit utilized for sheath placement 02:05 PM Bolus angiogram of right Femoral complete: ml/sec for a total of 5 mls 02:05 PM LQ=175 bpm, RFUG=491/87 mmhg, SpO2=93.0 %, Resp=20 B/min 02:07 PM everything pulled out. 02:07 PM Access obtained by percutaneous puncture. 5Fr 10cm Terumo Post sheath placed in right Femoral artery. [id number] 02:07 PM 0.035 145cm Navilyst 3mmJ wire [id number] 02:08 PM 5Fr FL 4 catheter inserted over the wire [facility] 02:08 PM Recorded Pressure: Ao, HR=98, Condition=Condition 1 (Aorta) Ao 125/87/104 02:08 PM LCA angiography performed in multiple views. 02:10 PM Catheter removed 02:10 PM 5Fr FR 4 catheter inserted over the wire [facility] 02:10 PM FR=934 bpm, EIUS=457/87 mmhg, SpO2=90.0 %, Resp=19 B/min 02:11 PM Time: 14:10 Oxygen on at 4 L/min per nasal cannula by Karen De Leon RN 02:11 PM RCA angiography performed in multiple views. 02:11 PM Recorded Pressure: Ao, II=725, Condition=Condition 1 (Aorta) Ao 127/76/102 02:12 PM Time: 13:57 Patient comfortable and pain free: 02:12 PM Time: 13:57LOC: 4 = Oriented but drowsy 02:12 PM Coronary Dominance: right 02:12 PM Catheter removed 02:13 PM 5Fr Pigtail catheter inserted over the wire [facility] 02:14 PM Catheter selectively placed in left ventricle bw 02:14 PM Recorded Pressure: LV, CS=143, Condition=Condition 1 (Left Ventricle) LV 130/23/29 02:14 PM Recorded Pressure: LV, Ao, HR=99, Condition=Condition 1 (Left Ventricle) LV 124/9/11, (Aorta) Ao 130/26/74 02:15 PM Catheter removed [email or web address] 02:15 PM Bolus angiogram of right Femoral complete: ml/sec for a total of 5 mls [email or web address] 02:15 PM HR=97 bpm, IAHM=075/80 mmhg, SpO2=93.0 %, Resp=16 B/min 02:17 PM Bolus angiogram of right Femoral complete: ml/sec for a total of 5 mls [email or web address] 02:18 PM Arterial sheath pulled, Angio-seal closure device used and was Successful [id number] S/N. [email or web address] 02:18 PM Isovue 370 - 200ml,1 Bottle(s) used. [email or web address] 02:18 PM Procedure completed at 14:18 [email or web address] 02:18 PM Sign out completed: Radiation Dose 197.10 mGy Fluoro Time: 1.4 Isovue 370 - 200ml contrast 54 ml given by Lindsay Fontanez MD. Complications: NoneCardiac Rehab Consult needed: NoConfirmed administered medications: Yes [email or web address] 02:19 PM Post ECG Sinus Arrhythmia [email or web address] 02:19 PM Post Blood Pressure 134/80 [email or web address] 02:19 PM 14:19 Post Pulses Bilateral DP & PT 1+ [email or web address] 02:20 PM Information taught Cardiac Cath and Angioseal [email or web address] 02:20 PM Education needs Procedure, Plan of Care, and Disease Process [email or web address] 02:20 PM Learning barriers :Sedated [email or web address] 02:20 PM Education Methods Verbal [email or web address] 02:20 PM Education evaluation Needs further instruction [email or web address] 02:20 PM Site status No bleeding/hematoma - Rt Groin as reported by Lia Harrison RT (R) at 14:20 [email or web address] 02:20 PM Opsite applied [email or web address] 02:20 PM Delay to floor No [email or web address] 02:20 PM Family none. [email or web address] 02:20 PM HR=87 bpm, EQWA=351/76 mmhg, SpO2=95.0 %, Resp=13 B/min 02:21 PM Complications: None [email or web address] 02:21 PM Fluoro Time: 1.4 [email or web address] 02:21 PM Isovue 370 - 200ml contrast 54 ml given by Lindsay Fontanez MD. [email or web address] 02:21 PM Radiation Dose 197.10 mGy [email or web address] 02:23 PM Vitals capture stopped. 02:24 PM Report given to aureliano DOMINGUEZ Pt taken to 3B Room #39. 14:23 [email or web address] 02:27 PM Time: 14:12LOC: 5 = Fully awake and oriented or at pre-proc level [email or web address] 02:27 PM Time: 14:12 Patient comfortable and pain free: Yes [email or web address] 02:27 PM Patient out of room: 14:27 [email or web address] Complications Complication None None Hemodynamics Pressures Site Systolic/A Wave Diastolic/V Wave Mean AO 125 87 104 AO 127 76 102 LV 130 23 29 LV 124 9 11 AO 130 26 74 Post Procedure Information Blood Pressure: 134/80 mmHg Rhythm: Sinus Arrhythmia Post procedural instructions were given Closure Device Time Device Success/Fail 04/11/2017 2:18:00 PM Angio-Seal VIP Successful Site Checks Time Location Status Staff Sheath In? Note 02:20 PM Rt Groin No bleeding/hematoma Lia Harrison RT (R) Pulses Time Site Pre-Procedure Post-Procedure Note 04/11/2017 1:45:00 PM Bilateral DP & PT 1+ 2:19:00 PM Bilateral DP & PT 1+ Updated by Aung Pichardo RT (R) on 04/11/2017 2:28:07 PM Aung Pichardo RT electronically signed on 04/11/2017 2:28:40 PM with status of Final
[2017-04-11] MEDS ORDERED: Acetaminophen 325 MG TABLET PO PRN (15:08)
--- NOTE | 2017-04-11 15:22 | Event Note ---
Date of Encounter: 04/11/17 Time of Encounter: 15:21 - Cardiology Event Note LHC with coronary arteries angiographically free of disease. Cardiology will sign off.
[2017-04-11 16:09] LABS: Basophils % 0.1 %; Hematocrit 46.8 % (37.5-50.1); Hemoglobin 15.9 g/dL (12.9-16.9); Immature Granulocytes % 0.4 % (0-4); Mean Corpuscular Hemoglobin 31.4 pg (28.0-33.3); Mean Corpuscular Volume 92.3 fL (83.0-100.0); Mean Platelet Volume 9.2 fL (9.4-12.4); Monocytes # 0.3 K/mcL (0.0-1.3); Monocytes % 1.9 %; Neutrophils # 14.6 K/mcL (1.6-8.9); Platelet Count 193 K/mcL (140-400); Red Blood Count 5.07 M/mcL (4.19-5.50); Red Cell Distribution Width 14.1 % (11.5-14.5); Segmented Neutrophils % 91.6 %
[2017-04-11 16:20] LABS: BUN/Creatinine Ratio 10 (6-26); Blood Urea Nitrogen 12 mg/dL (8-26); Calcium 9.2 mg/dL (8.6-10.8); Carbon Dioxide 22 mEq/L (19-29); Chloride 107 mEq/L (98-109); Glucose 122 mg/dL (70-99); Osmolality,Calculated 287 (280-300); Potassium 4.5 mEq/L (3.5-4.5); Sodium 138 mEq/L (136-145); eGFR For African Americans > 60 (> 60); eGFR For Non-African Americans > 60 (> 60)
[2017-04-12] MEDS: Ipratropium/Albuterol Neb 3 ML IH SCH ×3 (03:47→11:21)
[2017-04-12] MEDS: levoFLOXacin 500 MG TABLET PO SCH (07:55)
[2017-04-12] MEDS: predniSONE 20 MG TABLET PO SCH (07:55)
[2017-04-12] MEDS: Aspirin Enteric Coated 81 MG Tablet PO SCH (07:56)
--- NOTE | 2017-04-12 11:53 | Discharge Summary ---
Date of Encounter: 04/12/17 Time of Encounter: 12:45 - Discharge Diagnosis (1) Chest pain Priority: Primary Status: Resolved Qualifiers: Chest pain type: unspecified Qualified Code(s): R07.9 - Chest pain, unspecified (2) COPD exacerbation Priority: Primary Status: Acute (3) Pre-diabetes Priority: Primary Status: Ruled-out (4) HLD (hyperlipidemia) Priority: Secondary Status: Chronic Qualifiers: Hyperlipidemia type: unspecified Qualified Code(s): E78.5 - Hyperlipidemia , unspecified (5) Obesity (BMI 30.0-34.9) Priority: Secondary Status: Chronic (6) Tobacco abuse Priority: Secondary Status: Chronic - Discharge Medications Prescriptions: Albuterol Sulfate [Albuterol Inhaler] 1 puff IH Q4HR #1 hfa.aer.ad Atorvastatin [Lipitor] 20 mg PO HS #30 tablet levoFLOXacin [Levaquin] 500 mg PO DAILY #3 tablet predniSONE [PredniSONE] 40 mg PO DAILY #6 tablet Home Medications: HYDROcodone/Acet 5/325 mg [[place] 5-325 mg] 1 tab PO Q6H PRN 01/13/17 [History] Omeprazole [PriLOSEC] 20 mg PO DAILY 01/13/17 [History] Baclofen [Lioresal] 10 mg PO TID PRN 04/10/17 [History] Mupirocin [Bactroban Oint] 1 appl TP BID 04/10/17 [History] Albuterol Sulfate [Albuterol Inhaler] 1 puff IH Q4HR #1 hfa.aer.ad 04/12/17 [Rx] Atorvastatin [Lipitor] 20 mg PO HS #30 tablet 04/12/17 [Rx] levoFLOXacin [Levaquin] 500 mg PO DAILY #3 tablet 04/12/17 [Rx] predniSONE [PredniSONE] 40 mg PO DAILY #6 tablet 04/12/17 [Rx] Allergies/Adverse Reactions: 3 Allergy/AdvReac Type Severity Reaction Status Date / Time No Known Allergies Allergy Verified 01/13/17 13:41 Procedures/tests Complete & Pending: Procedures Performed prior 72 hours Category Date Time Status CL Cardiac Catheterization [CL] Routine Die Cutting Machine Operator 04/11/17 12:58 Completed NM alonzo perf SPECT multi [NM] Routine Exams 04/10/17 16:42 Taken ECG 12 lead ECG [ECG] Routine Y 04/11/17 15:08 Ordered EV echocardiogram Routine Y 04/11/17 11:38 Completed SP pharm nuclear stress Routine Y 04/11/17 07:15 Completed Date of admission: 04/10/17 16:07 Primary care physician: Servando Perez CNP Consults: 04/11/17 10:27 Consult to Cardiology [CONS] Stat Comment: Consulting Provider: Cardiology Priscila Reason for Consult: Chest pain, abnormal stress test Call Completed: Yes Discharging clinician: Isaiah Silverio Anticipated date of discharge: 04/12/17 - Patient Status Disposition: Home, Self-Care Condition: Good Functional capacity at discharge: independent ambulation Overall status at discharge: patient is back to baseline - Discharge Instructions Instructions: Influenza Virus Vaccine (Injection), Chest Pain (DC), Left Heart Catheterization (DC) Follow Up With: Tatiana Bautista CNP [Advanced Practice Nurse] - 04/18/17 12:30 pm - Diet and Activity Activity: resume usual activities as tolerated Diet: low fat, low cholesterol Interval History: See below Hospital course: Mr. Borja is a 56 year old male with tobacco abuse admitted for complains of chest pain and COPDE CXR/EKG and troponin were unremarkable However, stress test was abnormal , warranting cardiology evaluation and LHC which did not show any coronary blockage Patient has been chest pain free and asymptomatic He was wheezing on arrival and had symptoms of bronchitis, resolved and improved with duonebs, steroids and levaquin Mild leukocytosis is due to steroids Seen and evaluated this morning at bedside, no new complains, stable to be discharged home on Albuterol MDI, Statin for HLD, Levaquin and prednisone Educated on tobacco cessation , for 3 mins, declined NRT, wishes to self quit Follow up with PCP Time spent discussing smoking cessation with patient: 3 to 10 minutes - Time Spent with Patient Total time spent providing and/or coordinating discharge services: Greater than 30 minutes - Constitutional Vitals: Temp Pulse Resp BP Pulse Ox 98.0 F 63 17 114/68 97 04/12/17 07:35 04/12/17 07:35 04/12/17 11:23 04/12/17 07:35 04/12/17 11:23 General appearance: Present: A&O X 3, no acute distress, obese. Absent: pleasant - Head Head exam: Present: atraumatic, normocephalic - Eye Eye exam: Present: PERRL, conjuntiva pink, sclera anicteric Pupils: Present: PERRL - Neck Neck exam general surgery: Present: supple, trachea midline. Absent: lymphadenopathy - Respiratory Respiratory exam: Present: CTAB. Absent: accessory muscle use, rales, rhonchi, wheezes - Cardiovascular Cardiovascular exam: Present: RRR, +S1, +S2. Absent: diastolic murmur, gallop, rubs, systolic murmur - GI/Abdominal GI/Abdominal exam: Present: normal bowel sounds, soft, no peritoneal signs. Absent: distended, tenderness - Extremities Exam Extremities exam: Present: warm, radial pulses palpable and symmetrical. Absent : calf tenderness, cyanotic, pedal edema - Neurological Exam Neurological exam: Present: alert, CN II-XII intact, oriented X3, no focal deficits. Absent: pronater drift, facial droop, speech deficit - Skin Skin exam: Present: dry, intact
[2017-04-12 12:19] VITALS: BP 131/74
== END 2017-04-12 13:41 | disposition home or self-care (01) ==
LOC: 3BNU 13:05 → EMEROO 13:05 → SUATTDRO 16:07 → 3BNU 17:03
PROVIDERS: ADMIT Internal Medicine; ATTEND Internal Medicine

== ENCOUNTER 2021-07-26 15:51 | Inpatient (IN) ==
[2021-07-26 18:04] LABS: Basophils % 0.1 %; Hematocrit 49.7 % (37.5-50.1); Hemoglobin 16.8 g/dL (12.9-16.9); Immature Granulocytes % 0.6 % (0-4); Immature Platelets 8.2 % (1.1-6.1); Lymphocytes # 0.9 K/mcL (0.6-4.6); Lymphocytes % 5.8 %; Mean Corpuscular HGB Conc 33.8 g/dL (31.6-35.5); Mean Corpuscular Hemoglobin 30.8 pg (28.0-33.3); Mean Platelet Volume 10.8 fL (9.4-12.4); Monocytes # 1.1 K/mcL (0.0-1.3); Monocytes % 7.6 %; Neutrophils # 12.5 K/mcL (1.6-8.9); Platelet Count 113 K/mcL (140-400); Red Blood Count 5.46 M/mcL (4.19-5.50); Red Cell Distribution Width 14.1 % (11.5-14.5); Segmented Neutrophils % 85.9 %; White Blood Count 14.5 K/mcL (4.3-11.1)
[2021-07-26] MEDS: Ipratropium/Albuterol Neb 3 ML IH ONE ×2 (18:06→18:07)
[2021-07-26 18:22] LABS: BUN/Creatinine Ratio 20 (6-26); Blood Urea Nitrogen 38 mg/dL (8-23); Calcium 9.4 mg/dL (8.6-10.3); Carbon Dioxide 22 mEq/L (23-29); Chloride 101 mEq/L (98-107); Glucose 129 mg/dL (70-105); Osmolality,Calculated 293 (280-300); Potassium 4.1 mEq/L (3.5-5.1); Sodium 136 mEq/L (136-145); Troponin I < 0.03 ng/mL (< 0.04); eGFR For African Americans 43 (> 60); eGFR For Non-African Americans 36 (> 60)
[2021-07-26] MEDS ORDERED: 0.9 % Sodium Chloride 500 ML IVC ONE (18:40)
[2021-07-26] MEDS ORDERED: Ondansetron ODT 4 MG TAB.RAPDIS SL PRN (21:48)
[2021-07-26] MEDS ORDERED: Melatonin 3 MG TABLET PO PRN (21:48)
[2021-07-26] MEDS ORDERED: Naloxone 0.4 MG/ML INJ IVP PRN (21:48)
[2021-07-26] MEDS ORDERED: 0.9 % Sodium Chloride 250 ML IV ONE (22:52)
[2021-07-26] MEDS: Ipratropium/Albuterol Neb 3 ML IH SCH (23:13)
[2021-07-26] MEDS: Acetaminophen 325 MG TABLET PO PRN (23:26)
[2021-07-26] MEDS: *HR* LORazepam 2 MG/ML VIAL IVP PRN (23:27)
[2021-07-27 03:14] LABS: Albumin 3.5 g/dL (3.5-5.7); Albumin/Globulin Ratio 1.4 (1.1-2.2); Basophils % 0.1 %; Bilirubin,Total 0.4 mg/dL (0.3-1.0); Calcium 8.1 mg/dL (8.6-10.3); Globulin 2.5 g/dL (2.4-3.5); Hematocrit 43.3 % (37.5-50.1); Immature Granulocytes % 0.7 % (0-4); Lymphocytes # 0.6 K/mcL (0.6-4.6); Lymphocytes % 5.4 %; Mean Corpuscular HGB Conc 33.9 g/dL (31.6-35.5); Mean Corpuscular Hemoglobin 30.9 pg (28.0-33.3); Mean Corpuscular Volume 91.2 fL (83.0-100.0); Mean Platelet Volume 10.7 fL (9.4-12.4); Monocytes # 0.8 K/mcL (0.0-1.3); Monocytes % 7.2 %; Neutrophils # 9.9 K/mcL (1.6-8.9); Platelet Count 114 K/mcL (140-400); Red Blood Count 4.75 M/mcL (4.19-5.50); Red Cell Distribution Width 14.3 % (11.5-14.5); Segmented Neutrophils % 86.6 %; White Blood Count 11.4 K/mcL (4.3-11.1)
[2021-07-27 03:45] LABS: Hemoglobin 14.7 g/dL (12.9-16.9)
[2021-07-27] MEDS: Ipratropium/Albuterol Neb 3 ML IH SCH (04:15)
[2021-07-27] MEDS ORDERED: Ipratropium 1 PUFF INHALER IH ONE (04:24)
[2021-07-27] MEDS ORDERED: Budesonide/Formoterol 160/4.5 1 PUFF INH IH ONE (04:24)
[2021-07-27] MEDS: *HR* Heparin 5,000 UNIT/ML VIAL SQ SCH ×3 (06:36→20:42)
[2021-07-27] MEDS ORDERED: Ringers Solution, Lactated 1,000 ML IVC ONE (08:34)
[2021-07-27] MEDS: dexAMETHasone 4 MG TABLET PO SCH (08:37)
[2021-07-27] MEDS: Azithromycin 250 MG TABLET PO SCH (08:37)
[2021-07-27] MEDS: Ipratropium 1 PUFF INHALER IH SCH ×3 (08:38→20:30)
[2021-07-27] MEDS: Budesonide/Formoterol 160/4.5 1 PUFF INH IH SCH ×2 (08:39→20:30)
[2021-07-27 12:42] LABS: Protein/Creatinine Ratio,Urine 0.44 mg/mg (0.00-0.20)
[2021-07-27 12:50] LABS: Bilirubin,Urine Negative (Negative); Blood,Urine Trace (Negative); Clarity,Urine Clear (Clear); Color,Urine Light-Yellow (Yellow); Glucose,Urine (UA) 50 mg/dL (Normal); Hyaline Casts,Urine Few per lpf (None Seen); Ketones,Urine Negative (Negative); Leukocyte Esterase,Urine Negative (Negative); Mucus,Urine Few per lpf (None-Few); Nitrite,Urine Negative (Negative); Protein,Urine 30 mg/dL (Neg-Trace); RBC,Urine 0-3 per hpf (0-3); Specific Gravity,Urine 1.021 (1.010-1.025); Urobilinogen,Urine Normal (Normal); WBC,Urine 0-3 per hpf (0-3)
[2021-07-28 01:44] LABS: Calcium 8.9 mg/dL (8.6-10.3); Potassium 3.3 mEq/L (3.5-5.1)
[2021-07-28] MEDS: Ipratropium 1 PUFF INHALER IH SCH ×4 (04:02→19:37)
[2021-07-28] MEDS: *HR* Heparin 5,000 UNIT/ML VIAL SQ SCH ×3 (05:58→22:00)
[2021-07-28] MEDS: Budesonide/Formoterol 160/4.5 1 PUFF INH IH SCH ×2 (07:50→19:37)
[2021-07-28] MEDS: dexAMETHasone 4 MG TABLET PO SCH (08:07)
[2021-07-28] MEDS: Azithromycin 250 MG TABLET PO SCH (08:08)
[2021-07-28] MEDS: Ringers Solution, Lactated 1,000 ML IVC SCH (11:30)
[2021-07-29 02:25] LABS: BUN/Creatinine Ratio 18 (6-26); Blood Urea Nitrogen 20 mg/dL (8-23); Calcium 8.3 mg/dL (8.6-10.3); Carbon Dioxide 26 mEq/L (23-29); Chloride 102 mEq/L (98-107); Glucose 131 mg/dL (70-105); Osmolality,Calculated 286 (280-300); Potassium 4.2 mEq/L (3.5-5.1); Sodium 136 mEq/L (136-145); eGFR For African Americans > 60 (> 60); eGFR For Non-African Americans > 60 (> 60)
[2021-07-29] MEDS: Ipratropium 1 PUFF INHALER IH SCH ×2 (04:12→07:51)
[2021-07-29] MEDS: *HR* Heparin 5,000 UNIT/ML VIAL SQ SCH ×2 (05:22→13:14)
[2021-07-29] MEDS: Budesonide/Formoterol 160/4.5 1 PUFF INH IH SCH (07:51)
[2021-07-29] MEDS: Azithromycin 250 MG TABLET PO SCH (08:09)
[2021-07-29] MEDS: dexAMETHasone 4 MG TABLET PO SCH (08:09)
[2021-07-29] MEDS: *HR* LORazepam 2 MG/ML VIAL IVP PRN (08:12)
[2021-07-29] MEDS: Acetaminophen 325 MG TABLET PO PRN (08:13)
[2021-07-29] MEDS: Ringers Solution, Lactated 1,000 ML IVC SCH (08:52)
[2021-07-29 11:28] VITALS: BP 121/78; PULSE 80; TEMP 98; O2SAT 94
== END 2021-07-29 15:17 | disposition home or self-care (01) | DRG 871 ==
LOC: 3NENU 15:51 → EMEROOARM 15:51 → SUATTDRO 19:53 → 3NENU 21:02
PROVIDERS: ADMIT Internal Medicine; ATTEND Internal Medicine

== ENCOUNTER 2021-08-07 18:50 | Inpatient (IN) ==
[2021-08-08] MEDS ORDERED: Naloxone 0.4 MG/ML INJ IVP PRN (00:20)
[2021-08-08] MEDS ORDERED: Ondansetron 4 MG/2 ML VIAL IVP PRN (00:20)
[2021-08-08] MEDS ORDERED: methylPREDNISolone 125 MG/2 ML VIAL IVP ONE (00:22)
[2021-08-08] MEDS ORDERED: Saline Nasal Spray 44 ML BOTTLE NS PRN (00:23)
[2021-08-08] MEDS ORDERED: Saliva Stimulant 44.3ml BOTTLE PO PRN (00:23)
[2021-08-08] MEDS: Acetaminophen 325 MG TABLET PO PRN ×2 (01:19→20:52)
[2021-08-08 01:33] LABS: Basophils % 0.2 %; Hematocrit 44.5 % (37.5-50.1); Hemoglobin 14.9 g/dL (12.9-16.9); Immature Granulocytes % 0.8 % (0-4); Lymphocytes # 1.7 K/mcL (0.6-4.6); Mean Corpuscular HGB Conc 33.5 g/dL (31.6-35.5); Mean Corpuscular Hemoglobin 30.5 pg (28.0-33.3); Mean Platelet Volume 10.2 fL (9.4-12.4); Monocytes # 0.7 K/mcL (0.0-1.3); Monocytes % 4.1 %; Neutrophils # 14.6 K/mcL (1.6-8.9); Platelet Count 199 K/mcL (140-400); Red Blood Count 4.89 M/mcL (4.19-5.50); Red Cell Distribution Width 14.4 % (11.5-14.5); Segmented Neutrophils % 84.9 %; White Blood Count 17.2 K/mcL (4.3-11.1)
[2021-08-08 01:40] LABS: INR 1.3; Prothrombin Time 14.2 Seconds (9.4-12.1)
[2021-08-08 01:54] LABS: Calcium 8.4 mg/dL (8.6-10.3); Magnesium 2.3 mg/dL (1.6-2.6); Phosphorous 3.2 mg/dL (2.7-4.5)
[2021-08-08 02:32] LABS: Adenovirus Not Detected (Not Detect); Coronavirus 229E Not Detected (Not Detect); Coronavirus HKU1 Not Detected (Not Detect); Coronavirus NL63 Not Detected (Not Detect); Coronavirus OC43 Not Detected (Not Detect); Human Metapneumovirus Not Detected (Not Detect); Human Rhinovirus/Enterovirus Not Detected (Not Detect); Influenza A Subtype 2009 H1 Not Detected (Not Detect); Influenza B Not Detected (Not Detect); Parainfluenza Virus 1 Not Detected (Not Detect); Parainfluenza Virus 2 Not Detected (Not Detect); Parainfluenza Virus 3 Not Detected (Not Detect)
[2021-08-08 02:33] LABS: Bordetella Pertussis Not Detected (Not Detect); Chlamydophila pneumoniae Not Detected (Not Detect); Mycoplasma pneumoniae Not Detected (Not Detect); Parainfluenza Virus 4 Not Detected (Not Detect); Respiratory Syncytial Virus Not Detected (Not Detect)
[2021-08-08 02:35] LABS: SARS-CoV-2 DETECTED (Not Detect)
[2021-08-08] MEDS ORDERED: Ipratropium/Albuterol Neb 3 ML IH SCH (04:00)
[2021-08-08] MEDS ORDERED: Ipratropium 1 PUFF INHALER IH SCH (04:00)
[2021-08-08] MEDS: *HR* Heparin 5,000 UNIT/ML VIAL SQ SCH ×3 (06:25→20:44)
[2021-08-08] MEDS: Budesonide/Formoterol 160/4.5 1 PUFF INH IH SCH ×2 (07:21→20:29)
[2021-08-08] MEDS: Ipratropium/Albuterol Neb 3 ML IH SCH ×4 (07:21→20:29)
[2021-08-08] MEDS: levoFLOXacin 750 MG TABLET PO SCH (08:10)
[2021-08-08] MEDS: Chlorhexidine Rinse 15 ML MOUTHWASH MM SCH ×2 (08:10→20:43)
[2021-08-08] MEDS: Lactobacillus 1 EACH CAP.SPRINK PO SCH ×2 (08:10→20:44)
[2021-08-08] MEDS: MethylPREDNISolone 40 MG/ML VIAL IVP SCH ×3 (08:11→23:34)
[2021-08-08] MEDS: Artificial Tears SOLN 15 ML BOTTLE BOTH EYES SCH ×2 (08:11→20:47)
[2021-08-08] MEDS ORDERED: 0.9 % Sodium Chloride 1,000 ML IV ONE (21:02)
[2021-08-09] MEDS: Ipratropium/Albuterol Neb 3 ML IH SCH ×7 (00:20→23:24)
[2021-08-09] MEDS: *HR* Heparin 5,000 UNIT/ML VIAL SQ SCH ×3 (04:47→19:54)
[2021-08-09] MEDS: Budesonide/Formoterol 160/4.5 1 PUFF INH IH SCH ×2 (08:18→20:13)
[2021-08-09 08:55] LABS: Hematocrit 43.7 % (37.5-50.1); Hemoglobin 14.4 g/dL (12.9-16.9); Mean Corpuscular Hemoglobin 30.6 pg (28.0-33.3); Mean Corpuscular Volume 92.8 fL (83.0-100.0); Mean Platelet Volume 9.6 fL (9.4-12.4); Platelet Count 200 K/mcL (140-400); Red Blood Count 4.71 M/mcL (4.19-5.50); Red Cell Distribution Width 14.3 % (11.5-14.5); White Blood Count 16.1 K/mcL (4.3-11.1)
[2021-08-09 09:12] LABS: BUN/Creatinine Ratio 22 (6-26); Blood Urea Nitrogen 26 mg/dL (8-23); Calcium 8.3 mg/dL (8.6-10.3); Carbon Dioxide 25 mEq/L (23-29); Chloride 104 mEq/L (98-107); Glucose 256 mg/dL (70-105); Osmolality,Calculated 298 (280-300); Phosphorous 2.4 mg/dL (2.7-4.5); Potassium 4.2 mEq/L (3.5-5.1); Sodium 137 mEq/L (136-145); eGFR For African Americans > 60 (> 60); eGFR For Non-African Americans > 60 (> 60)
[2021-08-09] MEDS: Lactobacillus 1 EACH CAP.SPRINK PO SCH ×2 (09:17→19:54)
[2021-08-09] MEDS: levoFLOXacin 750 MG TABLET PO SCH (09:17)
[2021-08-09] MEDS: MethylPREDNISolone 40 MG/ML VIAL IVP SCH ×2 (09:17→15:26)
[2021-08-09] MEDS: Artificial Tears SOLN 15 ML BOTTLE BOTH EYES SCH ×2 (09:18→19:55)
[2021-08-09] MEDS: Chlorhexidine Rinse 15 ML MOUTHWASH MM SCH ×3 (09:18→19:56)
[2021-08-09 11:38] LABS: ABG Base Excess 1 mEq/L (-2 to 3); ABG HCO3 24 mEq/L (21-27); ABG Oxygen Saturation 91 % (95-98); ABG PCO2 31 mmHg (35-45); ABG PO2 54 mmHg (85-104); ABG TCO2 25 mEq/L (20-26)
[2021-08-09] MEDS: Acetaminophen 325 MG TABLET PO PRN (15:25)
[2021-08-09] MEDS ORDERED: *HR* Dextrose 50 % in Water (Syg) 50 ML SYRINGE IVP PRN (19:55)
[2021-08-09] MEDS ORDERED: Dextrose 4 GM Chewable Tablets PO PRN ×2 (19:55)
[2021-08-09] MEDS ORDERED: D5% in Water 1,000 ML IVC PRN (19:55)
[2021-08-09] MEDS ORDERED: Ibuprofen 600 MG TABLET PO ONE (20:02)
[2021-08-09] MEDS: Insulin LISPRO 300 UNITS/3 ML VIAL SUBQ SCH (21:04)
[2021-08-10] MEDS: MethylPREDNISolone 40 MG/ML VIAL IVP SCH ×3 (00:15→16:43)
[2021-08-10 01:49] LABS: Basophils % 0.1 %; Hematocrit 43.2 % (37.5-50.1); Hemoglobin 13.9 g/dL (12.9-16.9); Immature Granulocytes % 0.5 % (0-4); Lymphocytes # 1.2 K/mcL (0.6-4.6); Lymphocytes % 9.5 %; Mean Corpuscular HGB Conc 32.2 g/dL (31.6-35.5); Mean Corpuscular Hemoglobin 30.2 pg (28.0-33.3); Mean Corpuscular Volume 93.9 fL (83.0-100.0); Monocytes # 0.5 K/mcL (0.0-1.3); Neutrophils # 11.1 K/mcL (1.6-8.9); Platelet Count 194 K/mcL (140-400); Red Cell Distribution Width 14.5 % (11.5-14.5); Segmented Neutrophils % 85.9 %; White Blood Count 12.9 K/mcL (4.3-11.1)
[2021-08-10 02:05] LABS: BUN/Creatinine Ratio 22 (6-26); Blood Urea Nitrogen 24 mg/dL (8-23); Calcium 8.6 mg/dL (8.6-10.3); Carbon Dioxide 23 mEq/L (23-29); Chloride 105 mEq/L (98-107); Glucose 214 mg/dL (70-105); Magnesium 1.9 mg/dL (1.6-2.6); Osmolality,Calculated 296 (280-300); Phosphorous 2.5 mg/dL (2.7-4.5); Potassium 4.5 mEq/L (3.5-5.1); Sodium 138 mEq/L (136-145); eGFR For African Americans > 60 (> 60); eGFR For Non-African Americans > 60 (> 60)
[2021-08-10] MEDS: Ipratropium/Albuterol Neb 3 ML IH SCH ×6 (03:57→23:16)
[2021-08-10] MEDS: *HR* Heparin 5,000 UNIT/ML VIAL SQ SCH ×3 (05:26→22:00)
[2021-08-10] MEDS: Budesonide/Formoterol 160/4.5 1 PUFF INH IH SCH ×2 (07:28→20:08)
[2021-08-10] MEDS: levoFLOXacin 750 MG TABLET PO SCH (08:38)
[2021-08-10] MEDS: Lactobacillus 1 EACH CAP.SPRINK PO SCH ×2 (08:38→22:01)
[2021-08-10] MEDS: Insulin LISPRO 300 UNITS/3 ML VIAL SUBQ SCH ×4 (08:38→22:01)
[2021-08-10] MEDS: *HR* HYDROcodone/Acet 5/325 mg TABLET PO PRN ×2 (08:38→18:54)
[2021-08-10] MEDS: Artificial Tears SOLN 15 ML BOTTLE BOTH EYES SCH ×2 (08:39→22:00)
[2021-08-10] MEDS: Chlorhexidine Rinse 15 ML MOUTHWASH MM SCH ×2 (08:39→22:00)
[2021-08-10] MEDS: Melatonin 3 MG TABLET PO PRN (22:01)
[2021-08-11] MEDS: MethylPREDNISolone 40 MG/ML VIAL IVP SCH ×3 (01:24→16:49)
[2021-08-11] MEDS: hydrOXYzine pamoate 25 MG CAPSULE PO PRN ×2 (01:39→21:06)
[2021-08-11] MEDS: Ipratropium/Albuterol Neb 3 ML IH SCH ×2 (03:51→07:45)
[2021-08-11 05:48] LABS: Basophils % 0.1 %; Hematocrit 45.6 % (37.5-50.1); Immature Granulocytes % 0.9 % (0-4); Lymphocytes # 1.3 K/mcL (0.6-4.6); Lymphocytes % 9.1 %; Mean Corpuscular HGB Conc 34.2 g/dL (31.6-35.5); Mean Corpuscular Hemoglobin 31.3 pg (28.0-33.3); Mean Corpuscular Volume 91.6 fL (83.0-100.0); Mean Platelet Volume 9.6 fL (9.4-12.4); Monocytes # 0.6 K/mcL (0.0-1.3); Monocytes % 4.6 %; Neutrophils # 11.9 K/mcL (1.6-8.9); Platelet Count 224 K/mcL (140-400); Red Blood Count 4.98 M/mcL (4.19-5.50); Red Cell Distribution Width 14.4 % (11.5-14.5); Segmented Neutrophils % 85.3 %
[2021-08-11 05:49] LABS: Hemoglobin 15.6 g/dL (12.9-16.9)
[2021-08-11] MEDS: *HR* Heparin 5,000 UNIT/ML VIAL SQ SCH ×3 (06:01→21:05)
[2021-08-11] MEDS: *HR* HYDROcodone/Acet 5/325 mg TABLET PO PRN ×2 (06:01→21:20)
[2021-08-11 06:14] LABS: BUN/Creatinine Ratio 25 (6-26); Blood Urea Nitrogen 27 mg/dL (8-23); Calcium 8.3 mg/dL (8.6-10.3); Carbon Dioxide 24 mEq/L (23-29); Chloride 100 mEq/L (98-107); Glucose 202 mg/dL (70-105); Magnesium 1.8 mg/dL (1.6-2.6); Osmolality,Calculated 289 (280-300); Phosphorous 3.2 mg/dL (2.7-4.5); Potassium 4.7 mEq/L (3.5-5.1); Sodium 134 mEq/L (136-145); eGFR For African Americans > 60 (> 60); eGFR For Non-African Americans > 60 (> 60)
[2021-08-11] MEDS: Budesonide/Formoterol 160/4.5 1 PUFF INH IH SCH ×2 (07:46→19:47)
[2021-08-11] MEDS: Artificial Tears SOLN 15 ML BOTTLE BOTH EYES SCH ×2 (08:24→21:06)
[2021-08-11] MEDS: Chlorhexidine Rinse 15 ML MOUTHWASH MM SCH (08:24)
[2021-08-11] MEDS: levoFLOXacin 750 MG TABLET PO SCH (08:40)
[2021-08-11] MEDS: Lactobacillus 1 EACH CAP.SPRINK PO SCH ×2 (08:40→21:06)
[2021-08-11] MEDS: Insulin LISPRO 300 UNITS/3 ML VIAL SUBQ SCH ×4 (08:41→21:24)
[2021-08-11 10:21] LABS: Mycoplasma pneumoniae IgG 0.7 U/L (<=0.09)
[2021-08-11] MEDS ORDERED: Ipratropium/Albuterol Neb 3 ML IH PRN (10:45)
[2021-08-12] MEDS: Melatonin 3 MG TABLET PO PRN (00:14)
[2021-08-12] MEDS: MethylPREDNISolone 40 MG/ML VIAL IVP SCH ×3 (00:26→16:41)
[2021-08-12] MEDS: *HR* Heparin 5,000 UNIT/ML VIAL SQ SCH ×3 (06:01→20:18)
[2021-08-12] MEDS: Budesonide/Formoterol 160/4.5 1 PUFF INH IH SCH ×2 (08:08→20:07)
[2021-08-12] MEDS: levoFLOXacin 750 MG TABLET PO SCH (08:30)
[2021-08-12] MEDS: Artificial Tears SOLN 15 ML BOTTLE BOTH EYES SCH ×2 (08:30→20:18)
[2021-08-12] MEDS: Lactobacillus 1 EACH CAP.SPRINK PO SCH ×2 (08:30→20:17)
[2021-08-12] MEDS: Insulin LISPRO 300 UNITS/3 ML VIAL SUBQ SCH ×4 (08:30→20:19)
[2021-08-12] MEDS: *HR* HYDROcodone/Acet 5/325 mg TABLET PO PRN (20:17)
[2021-08-13 04:54] LABS: Basophils # 0.1 K/mcL (0.0-0.2); Basophils % 0.5 %; Hematocrit 49.2 % (37.5-50.1); Hemoglobin 16.5 g/dL (12.9-16.9); Lymphocytes # 2.2 K/mcL (0.6-4.6); Lymphocytes % 12.2 %; Mean Corpuscular HGB Conc 33.5 g/dL (31.6-35.5); Mean Corpuscular Hemoglobin 30.6 pg (28.0-33.3); Mean Corpuscular Volume 91.1 fL (83.0-100.0); Mean Platelet Volume 9.7 fL (9.4-12.4); Monocytes # 1.1 K/mcL (0.0-1.3); Monocytes % 5.9 %; Neutrophils # 14.1 K/mcL (1.6-8.9); Nucleated Red Blood Cells 0.2 /100 WBC (0); Platelet Count 230 K/mcL (140-400); Red Cell Distribution Width 14.2 % (11.5-14.5); Segmented Neutrophils % 78.4 %
[2021-08-13 05:12] LABS: BUN/Creatinine Ratio 27 (6-26); Blood Urea Nitrogen 31 mg/dL (8-23); Calcium 8.2 mg/dL (8.6-10.3); Carbon Dioxide 28 mEq/L (23-29); Chloride 99 mEq/L (98-107); Glucose 189 mg/dL (70-105); Magnesium 2.1 mg/dL (1.6-2.6); Osmolality,Calculated 290 (280-300); Phosphorous 3.9 mg/dL (2.7-4.5); Potassium 4.3 mEq/L (3.5-5.1); Sodium 134 mEq/L (136-145); eGFR For African Americans > 60 (> 60); eGFR For Non-African Americans > 60 (> 60)
[2021-08-13] MEDS: MethylPREDNISolone 40 MG/ML VIAL IVP SCH ×3 (06:26→16:41)
[2021-08-13] MEDS: *HR* Heparin 5,000 UNIT/ML VIAL SQ SCH ×3 (06:26→20:09)
[2021-08-13] MEDS: Budesonide/Formoterol 160/4.5 1 PUFF INH IH SCH ×2 (08:00→20:06)
[2021-08-13] MEDS: Lactobacillus 1 EACH CAP.SPRINK PO SCH ×2 (08:42→20:09)
[2021-08-13] MEDS: *HR* HYDROcodone/Acet 5/325 mg TABLET PO PRN ×2 (08:43→16:35)
[2021-08-13] MEDS: Insulin LISPRO 300 UNITS/3 ML VIAL SUBQ SCH ×4 (08:44→20:13)
[2021-08-13] MEDS: Artificial Tears SOLN 15 ML BOTTLE BOTH EYES SCH ×2 (08:45→20:09)
[2021-08-13] MEDS ORDERED: Perflutren Lipid Microsphere 1.3 ML in 0.9 % Sodium Chloride 8.7 ML IVP PRN (11:38)
[2021-08-13] MEDS ORDERED: MethylPREDNISolone 40 MG/ML VIAL IVP SCH (12:00)
[2021-08-13] MEDS: hydrOXYzine pamoate 25 MG CAPSULE PO PRN (16:35)
[2021-08-13] MEDS: Fluconazole 200 MG/100 ML 200 MG/100 ML BAG IVPB SCH (20:08)
[2021-08-13] MEDS: Nystatin SUSP 5 ML UD.LIQ PO SCH (20:09)
[2021-08-13] MEDS: Piperacillin/Tazobactam 3.375 GM in 0.9 % Sodium Chloride Mini Bag 100 ML IVPB SCH (23:17)
[2021-08-14] MEDS: *HR* HYDROcodone/Acet 5/325 mg TABLET PO PRN ×4 (02:17→23:20)
[2021-08-14] MEDS: *HR* Heparin 5,000 UNIT/ML VIAL SQ SCH ×3 (05:50→21:04)
[2021-08-14] MEDS: Budesonide/Formoterol 160/4.5 1 PUFF INH IH SCH (07:56)
[2021-08-14] MEDS: Lactobacillus 1 EACH CAP.SPRINK PO SCH ×2 (09:02→21:04)
[2021-08-14] MEDS: Nystatin SUSP 5 ML UD.LIQ PO SCH ×4 (09:02→21:04)
[2021-08-14] MEDS: hydrOXYzine pamoate 25 MG CAPSULE PO PRN ×2 (09:03→15:54)
[2021-08-14] MEDS: Piperacillin/Tazobactam 3.375 GM in 0.9 % Sodium Chloride Mini Bag 100 ML IVPB SCH ×3 (09:06→23:20)
[2021-08-14] MEDS: Artificial Tears SOLN 15 ML BOTTLE BOTH EYES SCH ×2 (09:07→21:03)
[2021-08-14] MEDS: Fluconazole 200 MG/100 ML 200 MG/100 ML BAG IVPB SCH (09:07)
[2021-08-14] MEDS: Insulin LISPRO 300 UNITS/3 ML VIAL SUBQ SCH ×4 (09:13→21:04)
[2021-08-14] MEDS: Magic Mouthwash 10 ML UD Cup PO SCH ×3 (12:43→15:51)
[2021-08-15] MEDS: *HR* Heparin 5,000 UNIT/ML VIAL SQ SCH ×3 (06:30→21:18)
[2021-08-15] MEDS: *HR* HYDROcodone/Acet 5/325 mg TABLET PO PRN ×3 (06:38→19:30)
[2021-08-15] MEDS: Magic Mouthwash 10 ML UD Cup PO SCH ×3 (06:39→16:51)
[2021-08-15] MEDS: Insulin LISPRO 300 UNITS/3 ML VIAL SUBQ SCH ×4 (08:07→19:49)
[2021-08-15] MEDS: Piperacillin/Tazobactam 3.375 GM in 0.9 % Sodium Chloride Mini Bag 100 ML IVPB SCH ×3 (08:08→23:50)
[2021-08-15] MEDS: Nystatin SUSP 5 ML UD.LIQ PO SCH ×4 (08:09→19:31)
[2021-08-15] MEDS: Lactobacillus 1 EACH CAP.SPRINK PO SCH ×2 (08:10→19:30)
[2021-08-15] MEDS: Fluconazole 200 MG/100 ML 200 MG/100 ML BAG IVPB SCH (08:19)
[2021-08-15] MEDS: Artificial Tears SOLN 15 ML BOTTLE BOTH EYES SCH ×3 (09:27→23:32)
[2021-08-15] MEDS ORDERED: Isovue-370 500 ML BOTTLE IVP ONE (11:06)
[2021-08-16] MEDS: *HR* HYDROcodone/Acet 5/325 mg TABLET PO PRN ×2 (03:24→21:06)
[2021-08-16 03:39] LABS: Basophils % 0.3 %; Eosinophils # 0.1 K/mcL (0.0-0.6); Eosinophils % 0.7 %; Hematocrit 48.4 % (37.5-50.1); Hemoglobin 16.1 g/dL (12.9-16.9); Immature Granulocytes % 2.4 % (0-4); Lymphocytes # 1.8 K/mcL (0.6-4.6); Lymphocytes % 14.1 %; Mean Corpuscular HGB Conc 33.3 g/dL (31.6-35.5); Mean Corpuscular Hemoglobin 30.4 pg (28.0-33.3); Mean Corpuscular Volume 91.3 fL (83.0-100.0); Monocytes # 0.9 K/mcL (0.0-1.3); Monocytes % 7.1 %; Neutrophils # 9.6 K/mcL (1.6-8.9); Platelet Count 154 K/mcL (140-400); Red Cell Distribution Width 14.6 % (11.5-14.5); Segmented Neutrophils % 75.4 %; White Blood Count 12.7 K/mcL (4.3-11.1)
[2021-08-16 03:49] LABS: BUN/Creatinine Ratio 19 (6-26); Blood Urea Nitrogen 24 mg/dL (8-23); Calcium 8.3 mg/dL (8.6-10.3); Carbon Dioxide 28 mEq/L (23-29); Chloride 99 mEq/L (98-107); Glucose 118 mg/dL (70-105); Magnesium 2.1 mg/dL (1.6-2.6); Osmolality,Calculated 283 (280-300); Phosphorous 3.2 mg/dL (2.7-4.5); Potassium 4.1 mEq/L (3.5-5.1); Sodium 134 mEq/L (136-145); eGFR For African Americans > 60 (> 60); eGFR For Non-African Americans 57 (> 60)
[2021-08-16] MEDS: *HR* Heparin 5,000 UNIT/ML VIAL SQ SCH ×3 (05:27→21:02)
[2021-08-16] MEDS: Insulin LISPRO 300 UNITS/3 ML VIAL SUBQ SCH ×4 (07:10→19:48)
[2021-08-16] MEDS: Magic Mouthwash 10 ML UD Cup PO SCH ×3 (09:41→17:28)
[2021-08-16] MEDS: Lactobacillus 1 EACH CAP.SPRINK PO SCH ×2 (09:42→21:02)
[2021-08-16] MEDS: Nystatin SUSP 5 ML UD.LIQ PO SCH ×4 (09:42→21:02)
[2021-08-16] MEDS: Fluconazole 200 MG/100 ML 200 MG/100 ML BAG IVPB SCH (09:42)
[2021-08-16] MEDS: Piperacillin/Tazobactam 3.375 GM in 0.9 % Sodium Chloride Mini Bag 100 ML IVPB SCH ×2 (09:47→17:28)
[2021-08-16] MEDS: Artificial Tears SOLN 15 ML BOTTLE BOTH EYES SCH ×2 (09:48→21:02)
[2021-08-16] MEDS ORDERED: Lidocaine -MPF 4% 5 ML AMPUL ONE (13:05)
[2021-08-16] MEDS ORDERED: *HR* Propofol 200 MG/20 ML VIAL IVP ONE (13:07)
[2021-08-16] MEDS ORDERED: *HR* FentaNYL (PF) 100 MCG/2 ML VIAL ONE (13:07)
[2021-08-16] MEDS ORDERED: Ondansetron 4 MG/2 ML VIAL ONE (13:07)
[2021-08-16] MEDS ORDERED: Lidocaine -MPF 2% 5 ML VIAL ONE (13:07)
[2021-08-16] MEDS ORDERED: *HR* OxyCODONE Immed Rel 5 MG TABLET PO PRN (13:45)
[2021-08-16] MEDS ORDERED: Promethazine 6.25 MG in Water for inj. (sterile) 20 ML IVPB PRN (13:45)
[2021-08-16] MEDS ORDERED: *HR* HYDROmorphone PF 0.5 MG/0.5 ML SYRINGE IVP PRN (13:45)
[2021-08-16] MEDS ORDERED: Ondansetron 4 MG/2 ML VIAL IVP PRN (13:45)
[2021-08-16] MEDS ORDERED: Albuterol 2.5 MG/3 ML NEBULIZER IH ONE (15:17)
[2021-08-17] MEDS: Piperacillin/Tazobactam 3.375 GM in 0.9 % Sodium Chloride Mini Bag 100 ML IVPB SCH ×4 (00:15→23:53)
[2021-08-17] MEDS: *HR* Heparin 5,000 UNIT/ML VIAL SQ SCH ×3 (05:29→20:44)
[2021-08-17 05:31] LABS: Basophils % 0.2 %; Eosinophils % 0.1 %; Hematocrit 45.6 % (37.5-50.1); Hemoglobin 15.6 g/dL (12.9-16.9); Lymphocytes # 0.9 K/mcL (0.6-4.6); Lymphocytes % 8.2 %; Mean Corpuscular HGB Conc 34.2 g/dL (31.6-35.5); Mean Corpuscular Hemoglobin 31.3 pg (28.0-33.3); Mean Corpuscular Volume 91.6 fL (83.0-100.0); Mean Platelet Volume 9.2 fL (9.4-12.4); Monocytes # 0.5 K/mcL (0.0-1.3); Monocytes % 4.3 %; Neutrophils # 9.9 K/mcL (1.6-8.9); Platelet Count 178 K/mcL (140-400); Red Blood Count 4.98 M/mcL (4.19-5.50); Red Cell Distribution Width 14.6 % (11.5-14.5); Segmented Neutrophils % 86.2 %; White Blood Count 11.5 K/mcL (4.3-11.1)
[2021-08-17 05:49] LABS: BUN/Creatinine Ratio 19 (6-26); Blood Urea Nitrogen 21 mg/dL (8-23); Calcium 8.2 mg/dL (8.6-10.3); Carbon Dioxide 29 mEq/L (23-29); Chloride 100 mEq/L (98-107); Glucose 152 mg/dL (70-105); Magnesium 2.2 mg/dL (1.6-2.6); Osmolality,Calculated 284 (280-300); Phosphorous 2.5 mg/dL (2.7-4.5); Potassium 4.4 mEq/L (3.5-5.1); Sodium 134 mEq/L (136-145); eGFR For African Americans > 60 (> 60); eGFR For Non-African Americans > 60 (> 60)
[2021-08-17] MEDS: Insulin LISPRO 300 UNITS/3 ML VIAL SUBQ SCH ×4 (08:36→20:39)
[2021-08-17] MEDS: Fluconazole 200 MG/100 ML 200 MG/100 ML BAG IVPB SCH (09:00)
[2021-08-17] MEDS: Calcium Gluconate 1gm/50mL 1 GM/50 ML BAG IVPB SCH ×2 (09:02→10:21)
[2021-08-17] MEDS: Lactobacillus 1 EACH CAP.SPRINK PO SCH ×2 (09:03→20:44)
[2021-08-17] MEDS: Nystatin SUSP 5 ML UD.LIQ PO SCH ×4 (09:03→20:44)
[2021-08-17] MEDS: Artificial Tears SOLN 15 ML BOTTLE BOTH EYES SCH ×2 (09:04→20:44)
[2021-08-17] MEDS: Magic Mouthwash 10 ML UD Cup PO SCH ×3 (09:04→17:00)
[2021-08-17] MEDS: Melatonin 3 MG TABLET PO PRN (23:57)
[2021-08-18] MEDS: *HR* Heparin 5,000 UNIT/ML VIAL SQ SCH ×3 (05:40→21:12)
[2021-08-18 06:58] LABS: Basophils % 0.1 %; Eosinophils # 0.1 K/mcL (0.0-0.6); Eosinophils % 0.4 %; Hematocrit 48.2 % (37.5-50.1); Immature Granulocytes % 0.7 % (0-4); Lymphocytes % 14.7 %; Mean Corpuscular HGB Conc 33.2 g/dL (31.6-35.5); Mean Corpuscular Hemoglobin 30.4 pg (28.0-33.3); Mean Corpuscular Volume 91.5 fL (83.0-100.0); Mean Platelet Volume 9.4 fL (9.4-12.4); Monocytes # 0.9 K/mcL (0.0-1.3); Monocytes % 6.4 %; Neutrophils # 10.7 K/mcL (1.6-8.9); Nucleated Red Blood Cells 0.1 /100 WBC (0); Platelet Count 191 K/mcL (140-400); Red Blood Count 5.27 M/mcL (4.19-5.50); Red Cell Distribution Width 14.6 % (11.5-14.5); Segmented Neutrophils % 77.7 %; White Blood Count 13.7 K/mcL (4.3-11.1)
[2021-08-18 07:16] LABS: BUN/Creatinine Ratio 20 (6-26); Blood Urea Nitrogen 25 mg/dL (8-23); Calcium 8.3 mg/dL (8.6-10.3); Carbon Dioxide 29 mEq/L (23-29); Chloride 99 mEq/L (98-107); Glucose 121 mg/dL (70-105); Magnesium 2.1 mg/dL (1.6-2.6); Osmolality,Calculated 286 (280-300); Phosphorous 1.9 mg/dL (2.7-4.5); Potassium 4.1 mEq/L (3.5-5.1); Sodium 135 mEq/L (136-145); eGFR For African Americans > 60 (> 60); eGFR For Non-African Americans > 60 (> 60)
[2021-08-18] MEDS: Insulin LISPRO 300 UNITS/3 ML VIAL SUBQ SCH ×4 (08:40→19:41)
[2021-08-18] MEDS: Magic Mouthwash 10 ML UD Cup PO SCH ×3 (09:25→17:51)
[2021-08-18] MEDS: Lactobacillus 1 EACH CAP.SPRINK PO SCH ×2 (09:26→21:12)
[2021-08-18] MEDS: Nystatin SUSP 5 ML UD.LIQ PO SCH ×4 (09:27→21:12)
[2021-08-18] MEDS: Piperacillin/Tazobactam 3.375 GM in 0.9 % Sodium Chloride Mini Bag 100 ML IVPB SCH ×2 (09:27→17:51)
[2021-08-18] MEDS: Fluconazole 200 MG/100 ML 200 MG/100 ML BAG IVPB SCH (09:27)
[2021-08-18] MEDS: Artificial Tears SOLN 15 ML BOTTLE BOTH EYES SCH ×2 (09:28→21:12)
[2021-08-18] MEDS ORDERED: Chloraseptic Spray 177 ML BOTTLE MM PRN (10:23)
[2021-08-18] MEDS ORDERED: *HR* OxyCODONE/APAP 5/325 TABLET PO PRN (10:25)
[2021-08-19] MEDS: Piperacillin/Tazobactam 3.375 GM in 0.9 % Sodium Chloride Mini Bag 100 ML IVPB SCH (00:52)
[2021-08-19] MEDS: *HR* HYDROcodone/Acet 5/325 mg TABLET PO PRN (00:57)
[2021-08-19] MEDS: *HR* Heparin 5,000 UNIT/ML VIAL SQ SCH ×3 (05:42→20:33)
[2021-08-19] MEDS: Insulin LISPRO 300 UNITS/3 ML VIAL SUBQ SCH ×4 (08:28→20:24)
[2021-08-19] MEDS: Nystatin SUSP 5 ML UD.LIQ PO SCH ×4 (08:36→20:33)
[2021-08-19] MEDS: Fluconazole 200 MG/100 ML 200 MG/100 ML BAG IVPB SCH (08:36)
[2021-08-19] MEDS: Magic Mouthwash 10 ML UD Cup PO SCH ×3 (08:36→17:18)
[2021-08-19] MEDS: Lactobacillus 1 EACH CAP.SPRINK PO SCH ×2 (08:36→20:33)
[2021-08-19] MEDS: Artificial Tears SOLN 15 ML BOTTLE BOTH EYES SCH ×2 (08:36→20:24)
[2021-08-19 10:04] LABS: Basophils % 0.1 %; Eosinophils # 0.1 K/mcL (0.0-0.6); Eosinophils % 0.6 %; Hematocrit 44.5 % (37.5-50.1); Hemoglobin 15.1 g/dL (12.9-16.9); Immature Granulocytes % 0.8 % (0-4); Lymphocytes # 1.6 K/mcL (0.6-4.6); Mean Corpuscular HGB Conc 33.9 g/dL (31.6-35.5); Mean Corpuscular Hemoglobin 31.1 pg (28.0-33.3); Mean Corpuscular Volume 91.6 fL (83.0-100.0); Mean Platelet Volume 9.7 fL (9.4-12.4); Monocytes # 1.1 K/mcL (0.0-1.3); Monocytes % 9.1 %; Neutrophils # 9.4 K/mcL (1.6-8.9); Platelet Count 170 K/mcL (140-400); Red Blood Count 4.86 M/mcL (4.19-5.50); Red Cell Distribution Width 14.7 % (11.5-14.5); Segmented Neutrophils % 76.4 %; White Blood Count 12.2 K/mcL (4.3-11.1)
[2021-08-19] MEDS: Sennosides/Docusate Sodium TABLET PO PRN (11:47)
[2021-08-19 12:09] LABS: BUN/Creatinine Ratio 17 (6-26); Blood Urea Nitrogen 20 mg/dL (8-23); Carbon Dioxide 25 mEq/L (23-29); Chloride 101 mEq/L (98-107); Glucose 145 mg/dL (70-105); Magnesium 1.9 mg/dL (1.6-2.6); Osmolality,Calculated 281 (280-300); Phosphorous 2.6 mg/dL (2.7-4.5); Sodium 133 mEq/L (136-145); eGFR For African Americans > 60 (> 60); eGFR For Non-African Americans > 60 (> 60)
[2021-08-19] MEDS ORDERED: polyethylene glycoL 3350 17 GM POWD.PACK PO PRN (17:21)
[2021-08-20] MEDS ORDERED: Milk and Molasses Enema 200 ML RC ONE (01:12)
[2021-08-20] MEDS: *HR* Heparin 5,000 UNIT/ML VIAL SQ SCH ×3 (04:43→21:02)
[2021-08-20] MEDS: *HR* HYDROcodone/Acet 5/325 mg TABLET PO PRN ×2 (04:43→21:09)
[2021-08-20] MEDS: Insulin LISPRO 300 UNITS/3 ML VIAL SUBQ SCH ×4 (06:58→19:24)
[2021-08-20] MEDS: Magic Mouthwash 10 ML UD Cup PO SCH ×3 (07:00→16:29)
[2021-08-20] MEDS: Fluconazole 200 MG/100 ML 200 MG/100 ML BAG IVPB SCH (09:02)
[2021-08-20] MEDS: Artificial Tears SOLN 15 ML BOTTLE BOTH EYES SCH ×2 (09:02→21:02)
[2021-08-20] MEDS: Nystatin SUSP 5 ML UD.LIQ PO SCH ×4 (09:02→21:02)
[2021-08-20] MEDS: Lactobacillus 1 EACH CAP.SPRINK PO SCH ×2 (09:02→21:02)
[2021-08-20 09:18] LABS: White Blood Count 12.9 K/mcL (4.3-11.1)
[2021-08-20 09:19] LABS: Basophils % 0.2 %; Eosinophils # 0.1 K/mcL (0.0-0.6); Eosinophils % 0.5 %; Hematocrit 46.1 % (37.5-50.1); Hemoglobin 15.9 g/dL (12.9-16.9); Immature Granulocytes % 1.1 % (0-4); Lymphocytes # 1.4 K/mcL (0.6-4.6); Lymphocytes % 10.7 %; Mean Corpuscular HGB Conc 34.5 g/dL (31.6-35.5); Mean Corpuscular Hemoglobin 30.8 pg (28.0-33.3); Mean Corpuscular Volume 89.2 fL (83.0-100.0); Mean Platelet Volume 9.4 fL (9.4-12.4); Monocytes # 0.9 K/mcL (0.0-1.3); Monocytes % 6.9 %; Neutrophils # 10.4 K/mcL (1.6-8.9); Platelet Count 171 K/mcL (140-400); Red Blood Count 5.17 M/mcL (4.19-5.50); Red Cell Distribution Width 14.7 % (11.5-14.5); Segmented Neutrophils % 80.6 %
[2021-08-20 09:38] LABS: BUN/Creatinine Ratio 15 (6-26); Blood Urea Nitrogen 19 mg/dL (8-23); Calcium 8.4 mg/dL (8.6-10.3); Carbon Dioxide 24 mEq/L (23-29); Chloride 100 mEq/L (98-107); Glucose 147 mg/dL (70-105); Osmolality,Calculated 281 (280-300); Potassium 3.6 mEq/L (3.5-5.1); Sodium 133 mEq/L (136-145); eGFR For African Americans > 60 (> 60); eGFR For Non-African Americans 57 (> 60)
[2021-08-21 01:40] LABS: Basophils % 0.3 %; Eosinophils # 0.1 K/mcL (0.0-0.6); Eosinophils % 1.2 %; Hematocrit 46.8 % (37.5-50.1); Immature Granulocytes % 1.2 % (0-4); Mean Corpuscular HGB Conc 34.2 g/dL (31.6-35.5); Mean Corpuscular Hemoglobin 30.6 pg (28.0-33.3); Mean Corpuscular Volume 89.5 fL (83.0-100.0); Mean Platelet Volume 9.9 fL (9.4-12.4); Monocytes # 0.9 K/mcL (0.0-1.3); Monocytes % 8.1 %; Neutrophils # 8.1 K/mcL (1.6-8.9); Platelet Count 173 K/mcL (140-400); Red Blood Count 5.23 M/mcL (4.19-5.50); Red Cell Distribution Width 14.6 % (11.5-14.5); Segmented Neutrophils % 71.2 %; White Blood Count 11.3 K/mcL (4.3-11.1)
[2021-08-21 01:54] LABS: BUN/Creatinine Ratio 15 (6-26); Blood Urea Nitrogen 18 mg/dL (8-23); Calcium 8.7 mg/dL (8.6-10.3); Carbon Dioxide 26 mEq/L (23-29); Chloride 99 mEq/L (98-107); Glucose 97 mg/dL (70-105); Osmolality,Calculated 280 (280-300); Potassium 3.7 mEq/L (3.5-5.1); Sodium 134 mEq/L (136-145); eGFR For African Americans > 60 (> 60); eGFR For Non-African Americans > 60 (> 60)
[2021-08-21] MEDS: *HR* Heparin 5,000 UNIT/ML VIAL SQ SCH ×3 (05:39→21:12)
[2021-08-21] MEDS: Artificial Tears SOLN 15 ML BOTTLE BOTH EYES SCH ×2 (10:20→21:12)
[2021-08-21] MEDS: Magic Mouthwash 10 ML UD Cup PO SCH ×3 (10:20→15:57)
[2021-08-21] MEDS: Insulin LISPRO 300 UNITS/3 ML VIAL SUBQ SCH ×4 (10:20→21:12)
[2021-08-21] MEDS: Lactobacillus 1 EACH CAP.SPRINK PO SCH ×2 (10:22→21:11)
[2021-08-21] MEDS: Nystatin SUSP 5 ML UD.LIQ PO SCH ×4 (10:23→21:18)
[2021-08-21] MEDS ORDERED: 0.9 % Sodium Chloride 1,000 ML ONE (10:52)
[2021-08-21] MEDS: 0.9 % Sodium Chloride 1,000 ML IVC SCH ×2 (10:59→18:22)
[2021-08-21] MEDS: *HR* HYDROcodone/Acet 5/325 mg TABLET PO PRN (21:11)
[2021-08-22] MEDS: 0.9 % Sodium Chloride 1,000 ML IVC SCH ×2 (03:13→11:41)
[2021-08-22] MEDS: *HR* Heparin 5,000 UNIT/ML VIAL SQ SCH ×3 (06:17→20:41)
[2021-08-22 06:38] LABS: Basophils % 0.3 %; Eosinophils # 0.1 K/mcL (0.0-0.6); Hematocrit 43.4 % (37.5-50.1); Hemoglobin 15.1 g/dL (12.9-16.9); Immature Granulocytes % 0.9 % (0-4); Lymphocytes # 2.1 K/mcL (0.6-4.6); Lymphocytes % 19.7 %; Mean Corpuscular HGB Conc 34.8 g/dL (31.6-35.5); Mean Corpuscular Hemoglobin 31.7 pg (28.0-33.3); Mean Platelet Volume 9.9 fL (9.4-12.4); Monocytes # 0.9 K/mcL (0.0-1.3); Monocytes % 8.5 %; Neutrophils # 7.3 K/mcL (1.6-8.9); Platelet Count 154 K/mcL (140-400); Red Blood Count 4.77 M/mcL (4.19-5.50); Red Cell Distribution Width 14.7 % (11.5-14.5); Segmented Neutrophils % 69.6 %; White Blood Count 10.4 K/mcL (4.3-11.1)
[2021-08-22 06:55] LABS: BUN/Creatinine Ratio 13 (6-26); Blood Urea Nitrogen 15 mg/dL (8-23); Calcium 8.1 mg/dL (8.6-10.3); Carbon Dioxide 24 mEq/L (23-29); Chloride 100 mEq/L (98-107); Glucose 98 mg/dL (70-105); Osmolality,Calculated 277 (280-300); Potassium 3.7 mEq/L (3.5-5.1); Sodium 133 mEq/L (136-145); eGFR For African Americans > 60 (> 60); eGFR For Non-African Americans > 60 (> 60)
[2021-08-22] MEDS: Lactobacillus 1 EACH CAP.SPRINK PO SCH ×2 (08:17→20:41)
[2021-08-22] MEDS: Magic Mouthwash 10 ML UD Cup PO SCH ×3 (08:18→16:42)
[2021-08-22] MEDS: Artificial Tears SOLN 15 ML BOTTLE BOTH EYES SCH ×2 (08:18→20:32)
[2021-08-22] MEDS: Nystatin SUSP 5 ML UD.LIQ PO SCH ×4 (08:18→20:32)
[2021-08-22] MEDS: Insulin LISPRO 300 UNITS/3 ML VIAL SUBQ SCH ×4 (08:19→22:37)
[2021-08-22] MEDS: *HR* HYDROcodone/Acet 5/325 mg TABLET PO PRN (20:41)
[2021-08-23] MEDS: *HR* Heparin 5,000 UNIT/ML VIAL SQ SCH ×3 (05:48→20:25)
[2021-08-23] MEDS: Insulin LISPRO 300 UNITS/3 ML VIAL SUBQ SCH ×4 (08:16→19:51)
[2021-08-23] MEDS: Artificial Tears SOLN 15 ML BOTTLE BOTH EYES SCH ×2 (09:46→19:07)
[2021-08-23] MEDS: Nystatin SUSP 5 ML UD.LIQ PO SCH ×4 (09:46→20:25)
[2021-08-23] MEDS: Lactobacillus 1 EACH CAP.SPRINK PO SCH ×2 (09:46→20:25)
[2021-08-23] MEDS: Magic Mouthwash 10 ML UD Cup PO SCH ×3 (09:49→16:14)
[2021-08-23] MEDS: Gabapentin 100 MG CAPSULE PO SCH ×2 (13:19→20:25)
[2021-08-23] MEDS: *HR* HYDROcodone/Acet 5/325 mg TABLET PO PRN (20:25)
[2021-08-24] MEDS: *HR* Heparin 5,000 UNIT/ML VIAL SQ SCH ×3 (05:52→21:21)
[2021-08-24] MEDS: Insulin LISPRO 300 UNITS/3 ML VIAL SUBQ SCH ×4 (08:51→21:15)
[2021-08-24] MEDS: Gabapentin 100 MG CAPSULE PO SCH ×3 (09:22→21:21)
[2021-08-24] MEDS: Magic Mouthwash 10 ML UD Cup PO SCH ×3 (09:22→16:27)
[2021-08-24] MEDS: Nystatin SUSP 5 ML UD.LIQ PO SCH ×4 (09:22→21:21)
[2021-08-24] MEDS: Artificial Tears SOLN 15 ML BOTTLE BOTH EYES SCH ×2 (09:22→21:25)
[2021-08-24] MEDS: Lactobacillus 1 EACH CAP.SPRINK PO SCH ×2 (09:22→21:21)
[2021-08-24] MEDS: *HR* HYDROcodone/Acet 5/325 mg TABLET PO PRN ×2 (12:38→23:11)
[2021-08-24] MEDS: valACYclovir 500 MG TABLET PO SCH (21:21)
[2021-08-25] MEDS: *HR* Heparin 5,000 UNIT/ML VIAL SQ SCH ×3 (04:57→20:50)
[2021-08-25] MEDS: Nystatin SUSP 5 ML UD.LIQ PO SCH ×4 (08:58→20:50)
[2021-08-25] MEDS: valACYclovir 500 MG TABLET PO SCH ×2 (08:58→20:50)
[2021-08-25] MEDS: Artificial Tears SOLN 15 ML BOTTLE BOTH EYES SCH ×3 (08:58→20:54)
[2021-08-25] MEDS: Lactobacillus 1 EACH CAP.SPRINK PO SCH ×2 (08:58→20:50)
[2021-08-25] MEDS: Gabapentin 100 MG CAPSULE PO SCH ×3 (08:58→20:49)
[2021-08-25] MEDS: Magic Mouthwash 10 ML UD Cup PO SCH ×3 (08:58→17:02)
[2021-08-25] MEDS: Insulin LISPRO 300 UNITS/3 ML VIAL SUBQ SCH ×4 (08:59→20:50)
[2021-08-25] MEDS: *HR* HYDROcodone/Acet 5/325 mg TABLET PO PRN (17:04)
[2021-08-25] MEDS: hydrOXYzine pamoate 25 MG CAPSULE PO PRN (23:56)
[2021-08-26 05:14] LABS: Basophils % 0.2 %; Eosinophils # 0.1 K/mcL (0.0-0.6); Eosinophils % 0.8 %; Hematocrit 42.3 % (37.5-50.1); Hemoglobin 14.5 g/dL (12.9-16.9); Immature Granulocytes % 0.9 % (0-4); Lymphocytes # 2.2 K/mcL (0.6-4.6); Lymphocytes % 24.4 %; Mean Corpuscular HGB Conc 34.3 g/dL (31.6-35.5); Mean Corpuscular Hemoglobin 30.8 pg (28.0-33.3); Mean Corpuscular Volume 89.8 fL (83.0-100.0); Mean Platelet Volume 9.6 fL (9.4-12.4); Monocytes # 0.8 K/mcL (0.0-1.3); Monocytes % 9.4 %; Neutrophils # 5.7 K/mcL (1.6-8.9); Platelet Count 188 K/mcL (140-400); Red Blood Count 4.71 M/mcL (4.19-5.50); Red Cell Distribution Width 14.3 % (11.5-14.5); Segmented Neutrophils % 64.3 %; White Blood Count 8.9 K/mcL (4.3-11.1)
[2021-08-26 05:25] LABS: Alanine Aminotransferase 77 Units/L (7-52); Albumin 3.1 g/dL (3.5-5.7); Albumin/Globulin Ratio 0.8 (1.1-2.2); Alkaline Phosphatase 70 Units/L (34-104); Aspartate Amino Transferase 34 Units/L (13-39); BUN/Creatinine Ratio 13 (6-26); Bilirubin,Total 0.6 mg/dL (0.3-1.0); Blood Urea Nitrogen 14 mg/dL (8-23); Calcium 8.8 mg/dL (8.6-10.3); Carbon Dioxide 27 mEq/L (23-29); Chloride 98 mEq/L (98-107); Glucose 104 mg/dL (70-105); Osmolality,Calculated 279 (280-300); Potassium 3.8 mEq/L (3.5-5.1); Sodium 134 mEq/L (136-145); Total Protein 7.1 g/dL (6.4-8.9); eGFR For African Americans > 60 (> 60); eGFR For Non-African Americans > 60 (> 60)
[2021-08-26] MEDS: *HR* Heparin 5,000 UNIT/ML VIAL SQ SCH ×3 (05:27→20:52)
[2021-08-26] MEDS: Insulin LISPRO 300 UNITS/3 ML VIAL SUBQ SCH ×4 (08:02→20:52)
[2021-08-26] MEDS: Magic Mouthwash 10 ML UD Cup PO SCH ×3 (08:17→17:14)
[2021-08-26] MEDS: Nystatin SUSP 5 ML UD.LIQ PO SCH ×4 (08:17→20:52)
[2021-08-26] MEDS: Artificial Tears SOLN 15 ML BOTTLE BOTH EYES SCH ×2 (08:18→20:52)
[2021-08-26] MEDS: valACYclovir 500 MG TABLET PO SCH ×2 (08:18→20:52)
[2021-08-26] MEDS: Lactobacillus 1 EACH CAP.SPRINK PO SCH ×2 (08:18→20:52)
[2021-08-26] MEDS: Gabapentin 100 MG CAPSULE PO SCH ×3 (08:18→20:52)
[2021-08-26] MEDS: hydrOXYzine pamoate 25 MG CAPSULE PO PRN (23:45)
[2021-08-27] MEDS: *HR* Heparin 5,000 UNIT/ML VIAL SQ SCH ×3 (06:10→20:28)
[2021-08-27] MEDS: Insulin LISPRO 300 UNITS/3 ML VIAL SUBQ SCH ×4 (07:56→20:24)
[2021-08-27] MEDS: Artificial Tears SOLN 15 ML BOTTLE BOTH EYES SCH ×2 (07:56→20:12)
[2021-08-27] MEDS: Magic Mouthwash 10 ML UD Cup PO SCH ×2 (07:56→11:22)
[2021-08-27] MEDS: valACYclovir 500 MG TABLET PO SCH ×2 (08:26→20:28)
[2021-08-27] MEDS: Gabapentin 100 MG CAPSULE PO SCH ×3 (08:26→20:28)
[2021-08-27] MEDS: Lactobacillus 1 EACH CAP.SPRINK PO SCH ×2 (08:26→20:28)
[2021-08-27] MEDS: Sennosides/Docusate Sodium TABLET PO PRN (08:32)
[2021-08-27] MEDS ORDERED: Magic Mouthwash 10 ML UD Cup PO PRN (15:15)
[2021-08-28] MEDS: hydrOXYzine pamoate 25 MG CAPSULE PO PRN (00:35)
[2021-08-28 01:39] LABS: Basophils % 0.2 %; Eosinophils # 0.1 K/mcL (0.0-0.6); Eosinophils % 1.1 %; Hematocrit 41.7 % (37.5-50.1); Immature Granulocytes % 0.8 % (0-4); Lymphocytes # 2.1 K/mcL (0.6-4.6); Lymphocytes % 25.8 %; Mean Corpuscular HGB Conc 33.6 g/dL (31.6-35.5); Mean Corpuscular Hemoglobin 29.9 pg (28.0-33.3); Mean Corpuscular Volume 89.1 fL (83.0-100.0); Mean Platelet Volume 9.6 fL (9.4-12.4); Monocytes # 0.8 K/mcL (0.0-1.3); Monocytes % 9.3 %; Neutrophils # 5.2 K/mcL (1.6-8.9); Platelet Count 216 K/mcL (140-400); Red Blood Count 4.68 M/mcL (4.19-5.50); Red Cell Distribution Width 14.3 % (11.5-14.5); Segmented Neutrophils % 62.8 %; White Blood Count 8.3 K/mcL (4.3-11.1)
[2021-08-28 02:56] LABS: BUN/Creatinine Ratio 13 (6-26); Blood Urea Nitrogen 14 mg/dL (8-23); Calcium 8.8 mg/dL (8.6-10.3); Carbon Dioxide 27 mEq/L (23-29); Chloride 95 mEq/L (98-107); Glucose 93 mg/dL (70-105); Osmolality,Calculated 276 (280-300); Potassium 3.9 mEq/L (3.5-5.1); Sodium 133 mEq/L (136-145); eGFR For African Americans > 60 (> 60); eGFR For Non-African Americans > 60 (> 60)
[2021-08-28] MEDS: *HR* Heparin 5,000 UNIT/ML VIAL SQ SCH ×2 (06:25→15:31)
[2021-08-28] MEDS: Insulin LISPRO 300 UNITS/3 ML VIAL SUBQ SCH ×3 (07:14→16:00)
[2021-08-28 07:40] VITALS: O2SAT 95
[2021-08-28] MEDS: Artificial Tears SOLN 15 ML BOTTLE BOTH EYES SCH (08:12)
[2021-08-28] MEDS: Gabapentin 100 MG CAPSULE PO SCH ×2 (08:12→15:30)
[2021-08-28] MEDS: Lactobacillus 1 EACH CAP.SPRINK PO SCH (08:12)
[2021-08-28] MEDS: valACYclovir 500 MG TABLET PO SCH (08:12)
[2021-08-28 11:32] VITALS: BP 100/68; PULSE 82; TEMP 97.9
== END 2021-08-28 16:28 | DRG 871 ==
LOC: 2ANU → SUATTDRO 22:38
PROVIDERS: ADMIT Internal Medicine; ATTEND Hospitalist
PROC: ENDOBRF (2021-08-16 16:20)